=== PATIENT | female | born 1975 | race Two or more races ===

== ENCOUNTER → 2020-02-29 11:39 | Outpatient (BNVA) | payer OTHER, SELFPAY | PROVIDERS: PCP Internal Medicine; Referring Provider Internal Medicine; Visit Provider Obstetrics & Gynecology | DX: N92.1 Excessive and frequent menstruation with irregular cycle (principal); N76.0 Acute vaginitis; B96.89 Other specified bacterial agents as the cause of diseases classified elsewhere | CPT/HCPCS: 99213 ==

== ENCOUNTER → 2020-03-07 11:05 | Outpatient (BNV) | payer OTHER, SELFPAY | PROVIDERS: PCP Internal Medicine; Referring Provider Internal Medicine; Visit Provider Internal Medicine | DX: D72.819 Decreased white blood cell count, unspecified (principal) | CPT/HCPCS: 99204; 99212; 99213 ==

== ENCOUNTER 2020-06-06 06:20 | Outpatient (REF) | payer OTHER, SELFPAY ==
[2020-06-06 07:21] LABS: Glucose Urine UA NEG (NEG); Leukocyte Esterase Urine NEG (NEG); Nitrite Urine NEG (NEG); Specific Gravity - Urine <= 1.005 (1.005-1.025); Urine Blood NEG (NEG); Urine Ketones NEG (NEG); Urine Protein NEG (NEG-TRACE)
[2020-06-06 07:27] LABS: Appearance Urine CLEAR; Color Urine STRAW
== END 2020-06-06 06:21 | disposition home or self-care (01) ==
LOC: HO.LAB 06:20
PROVIDERS: PCP Internal Medicine; Visit Provider Internal Medicine
DX: R30.0 Dysuria (principal)
CPT/HCPCS: 81003

== ENCOUNTER 2020-06-15 16:17 | Outpatient (REF) | payer OTHER, SELFPAY | END 2020-06-15 16:18 | disposition home or self-care (01) | LOC: HO.LAB 16:17 | PROVIDERS: Visit Provider Internal Medicine | DX: Z20.822 Contact with and (suspected) exposure to COVID-19 (principal) | CPT/HCPCS: 36415; C9803; U0003 ==

== ENCOUNTER 2020-06-22 10:53 | Outpatient (REF) | payer OTHER, SELFPAY | END 2020-06-22 10:54 | disposition home or self-care (01) | LOC: HO.LAB 10:53 | PROVIDERS: Visit Provider Internal Medicine | DX: Z20.822 Contact with and (suspected) exposure to COVID-19 (principal) | CPT/HCPCS: 36415; C9803; U0003; U0005 ==

== ENCOUNTER 2020-07-06 08:46 | Outpatient (REF) | payer OTHER, SELFPAY ==
--- NOTE | ~2020-07-06 | XR_ITS ---
EXAMINATION: XR CHEST CLINICAL INFORMATION: Shortness of breath COMPARISON: None TECHNIQUE: 2 views of the chest were obtained. FINDINGS: No significant abnormality is noted involving the heart, lungs, mediastinum, bony thorax or soft tissues. XR/XR chest 2V IMPRESSION: No acute pulmonary disease.
[2020-07-06 10:10] LABS: Glucose Urine UA NEG (NEG); Leukocyte Esterase Urine NEG (NEG); Nitrite Urine NEG (NEG); PH 5.5 (5.0-8.0); Specific Gravity - Urine 1.015 (1.005-1.025); Urine Blood TRACE (NEG); Urine Ketones NEG (NEG); Urine Protein NEG (NEG-TRACE)
[2020-07-06 10:11] LABS: Appearance Urine CLEAR; Color Urine YELLOW
[2020-07-06 11:01] LABS: RBC Urine 0-2 /HPF (0); WBC Urine 0-2 /HPF (0-4)
[2020-07-06 11:02] LABS: Squamous Epithelial Cell Urine 2+ /LPF
== END 2020-07-06 08:47 | disposition home or self-care (01) ==
LOC: HO.LAB 08:46
PROVIDERS: PCP Internal Medicine; Visit Provider Internal Medicine
DX: R06.02 Shortness of breath (principal); R82.90 Unspecified abnormal findings in urine
CPT/HCPCS: 71046; 81001

== ENCOUNTER 2020-07-16 08:05 | Outpatient (REF) | payer OTHER, SELFPAY ==
--- NOTE | 2020-07-16 17:09 | PFT_ITS ---
INDICATION: Shortness of breath. SPIROMETRY: The FEV1 to FVC 82% with an FEV1 of 3.18 L, which is 92% predicted and an FVC of 3.88 L, which is 93% predicted. No significant response to bronchodilators noted. Maximum voluntary ventilation 84% predicted. LUNG VOLUMES: Total lung capacity 113% predicted with residual volume 128% predicted. Expiratory reserve volume of 56% predicted. DIFFUSION CAPACITY: DLCO of 74% predicted. COMPARISONS: None. INTERPRETATION: No obstructive nor restrictive ventilatory defects identified. No significant response to bronchodilators noted. Normal maximum voluntary ventilation. The patient's lung volumes do demonstrate a trend of hyperinflation and significant air trapping, which could be due to underlying small airways disease. The patient also has a mild diffusion impairment. Consider methacholine challenge to assess for hyper-reactive airways and a diagnosis of asthma. Otherwise, clinical correlation warranted. Osei Alex MD MR/MODL / [id number]
== END 2020-07-16 08:06 | disposition home or self-care (01) ==
LOC: HO.RESP 08:05
PROVIDERS: PCP Internal Medicine; Visit Provider Internal Medicine
DX: R06.02 Shortness of breath (principal)
CPT/HCPCS: 94060; 94727; 94729

== ENCOUNTER → 2020-08-14 14:59 | Outpatient (BNVA) | payer OTHER, SELFPAY | PROVIDERS: Visit Provider Hospitalist | DX: K21.00 Gastro-esophageal reflux disease with esophagitis, without bleeding (principal); R06.02 Shortness of breath; J31.0 Chronic rhinitis; J45.40 Moderate persistent asthma, uncomplicated; Z79.899 Other long term (current) drug therapy | CPT/HCPCS: 99202 ==

== ENCOUNTER 2020-08-24 07:55 | Outpatient (REF) | payer OTHER, SELFPAY ==
--- NOTE | ~2020-08-24 | FL_ITS ---
EXAMINATION: FL BARIUM SWALLOW CLINICAL INFORMATION: Gastroesophageal reflux disease. COMPARISON: Chest x-ray June 2020. Upper GI series November 2018. TECHNIQUE: Barium swallow examination is performed using fluoroscopic evaluation in addition to multiple fluoroscopic spot views. The patient is imaged both upright and prone and using both thick and thin barium sulfate along with effervescent granules. Fluoroscopy time: 0.9 minutes DAP: 1.314 Gycm2 Images: 22 FINDINGS: The swallowing mechanisms appeared normal without aspiration or penetration. Esophageal motility is normal. There is no mass stricture or ulceration. There is no diverticulum. EG junction is normal. Contrast passes into the stomach without delay. There is no hiatal hernia. There is no reflux. FL/FL barium swallow IMPRESSION: Normal barium swallow. No evidence for reflux or hiatal hernia
== END 2020-08-24 07:56 | disposition home or self-care (01) ==
LOC: HO.XRAY 07:55
PROVIDERS: PCP Internal Medicine; Visit Provider Hospitalist
DX: K21.9 Gastro-esophageal reflux disease without esophagitis (principal)
CPT/HCPCS: 74220

== ENCOUNTER → 2020-08-31 15:14 | Outpatient (BNVA) | payer OTHER, SELFPAY | PROVIDERS: PCP Internal Medicine; Visit Provider Hospitalist | DX: J45.40 Moderate persistent asthma, uncomplicated (principal); K21.00 Gastro-esophageal reflux disease with esophagitis, without bleeding; J31.0 Chronic rhinitis; Z79.899 Other long term (current) drug therapy | CPT/HCPCS: 99212 ==

== ENCOUNTER 2020-09-12 08:01 | Outpatient (REF) | payer OTHER, SELFPAY ==
--- NOTE | ~2020-09-12 | US_ITS ---
EXAMINATION: US ABDOMEN COMPLETE CLINICAL INFORMATION: Abdominal pain. COMPARISON: None TECHNIQUE: Real-time imaging of the abdominal viscera. FINDINGS: PANCREAS: Normal. ABDOMINAL AORTA: The proximal, mid, and distal segments are normal in caliber. INFERIOR VENA CAVA: Visualized portions are normal. LIVER: Normal. The liver is normal in size. The liver contour is normal. Parenchymal echogenicity is normal. No focal hepatic lesion. There is no intrahepatic biliary duct dilatation seen. GALLBLADDER: Normal. The gallbladder is physiologically distended without evidence of stones, sludge, polyps, wall thickening or pericholecystic fluid. COMMON BILE DUCT: Normal in caliber measuring 0.3 cm in diameter. RIGHT KIDNEY: Normal. No hydronephrosis. No renal calculi or focal parenchymal lesions. The kidney measures 9.9 cm in maximum dimension. LEFT KIDNEY: Normal. No hydronephrosis. No renal calculi or focal parenchymal lesions. The kidney measures 10.1 cm in maximum dimension. SPLEEN: Normal. The spleen measures 9.7 cm in maximum dimension. FREE FLUID: None. US/US abdomen complete IMPRESSION: Normal abdominal ultrasound.
== END 2020-09-12 08:02 | disposition home or self-care (01) ==
LOC: HO.US 08:01
PROVIDERS: PCP Internal Medicine; Visit Provider Internal Medicine
DX: R10.84 Generalized abdominal pain (principal)
CPT/HCPCS: 76700

== ENCOUNTER 2020-09-17 10:36 | Day surgery (SDC) | payer OTHER, SELFPAY ==
[2020-09-12 12:33] VITALS: BMI 16.9
--- NOTE | 2020-09-13 13:50 | HO.ANESPROP2 ---
Documented by User: Rosario Shahid 09/13/20 13:52 HPI - Anesthesia Eval Consult details Narrative: 45yo F for Upper Endoscopy and Colonoscopy Recent conjunctivitis 09/05/20 with tx PMFSH Active Problems Active Problems: All Active Problems (Updated 09/12/20 @ 12:37 by Daria Apple) Metrorrhagia (Acute) Leucopenia (Acute) Impaired fasting blood sugar (Acute) Abdominal pain (Acute) Foul smelling urine (Acute) Chronic rhinitis (Acute) Asthma (Acute) GERD (gastroesophageal reflux disease) (Acute) Vitamin B12 deficiency (Acute) Gastritis (Acute) Shortness of breath (Acute) Past Medical History Medical History Asthma Bacterial vaginosis Chronic leukopenia Chronic rhinitis Gastritis GERD (gastroesophageal reflux disease) Hypovitaminosis D Iron deficiency anemia Shortness of breath Vitamin B12 deficiency Family History Family History Mother Diabetes Maternal Grandmother Diabetes Other Leukemia Surgical History Surgical History Congenital cataract History of esophagogastroduodenoscopy (EGD) History of mandibular surgery Social History Social History Alcohol intake: never Smoking Status: Never smoker Use of substances other than those prescribed or required for medical reasons: No Have you been hit, kicked, punched, or otherwise hurt by someone within the past year? 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 Current occupational exposures/hazards: No Sexual orientation: Straight/Heterosexual Gender identity: female Meds Allergies Allergy/AdvReac Type Severity Reaction Status Date / Time No Known Allergies Allergy Verified 09/12/20 12:30 Home Medications Medication Instructions Recorded Confirmed Last Taken Type beta carotene 25,000 unit PO DAILY 06/12/20 09/12/20 Unknown History bilberry fruit extract [Bilberry 160 mg PO DAILY 06/12/20 09/12/20 Unknown History Extract] vitamin B complex 1 tab PO DAILY 08/14/20 09/12/20 Unknown History acetaminophen [Tylenol] 650 mg PO Q6H PRN 09/12/20 09/12/20 Unknown History multivitamin 1 tab PO QAM 09/12/20 09/12/20 Unknown History Exam Exam Date and Time: September 13, 2020 1350 Height,Weight and Vital Signs: Height 5 ft 9.5 in Weight 52.617 kg Assessment and Plan Assessment Anesthesia Assessment: Chart Reviewed Documented by User: Jose Luis Bundy 09/17/20 12:33 [facility] Past Medical History Medical History Asthma Bacterial vaginosis Chronic leukopenia Chronic rhinitis Gastritis GERD (gastroesophageal reflux disease) Hypovitaminosis D Iron deficiency anemia Shortness of breath Vitamin B12 deficiency Family History Family History Mother Diabetes Maternal Grandmother Diabetes Other Leukemia Surgical History Surgical History Congenital cataract History of esophagogastroduodenoscopy (EGD) History of mandibular surgery Social History Social History Alcohol intake: never Smoking Status: Never smoker Use of substances other than those prescribed or required for medical reasons: No Have you been hit, kicked, punched, or otherwise hurt by someone within the past year? 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 Current occupational exposures/hazards: No Sexual orientation: Straight/Heterosexual Gender identity: female Meds Allergies Allergy/AdvReac Type Severity Reaction Status Date / Time No Known Allergies Allergy Verified 09/12/20 12:30 Home Medications Medication Instructions Recorded Confirmed Last Taken Type beta carotene 25,000 unit PO DAILY 06/12/20 09/12/20 Unknown History bilberry fruit extract [Bilberry 160 mg PO DAILY 06/12/20 09/12/20 Unknown History Extract] vitamin B complex 1 tab PO DAILY 08/14/20 09/12/20 Unknown History acetaminophen [Tylenol] 650 mg PO Q6H PRN 09/12/20 09/12/20 Unknown History multivitamin 1 tab PO QAM 09/12/20 09/12/20 Unknown History Exam Airway Mallampati Class: II TM Dist: >3cm Neck ROM: Full Loose/Missing/Broken Teeth: No Heart: rrr+[id number] Lungs: cta b/l Assessment and Plan Assessment Anesthesia Assessment: Anesthesia Plan Discussed, PAT Visit and Chart Reviewed Final Anesthetic Review NPO: Yes ASA Class: II Final Preanesthetic Review: No Changes in Pt Med Stat, Meds/Allgs Chart Reviewed, Consent Obtained/Reviewed and Anes Risks/Benef Reviewed Patient Risk: Low Procedure Risk: Low Assessment/Block/Sedation in SS: Assess/Block/Sedation-SS Anesthetic Plan Anesthetic Plan: MAC: and Agree w/ Assess. and Plan Disposition: Standard PACU
[2020-09-17 11:30] VITALS: BP 106/69; PULSE 89; RESP 18; TEMP 36.6; O2SAT 99
[2020-09-17 11:55] LABS: UPreg QC Valid YES; Urine Pregnancy NEGATIVE (NEGATIVE)
[2020-09-17] MEDS: Lactated Ringers 1,000 ML 100 ML IVCONT (11:56)
--- NOTE | 2020-09-17 14:44 | PM.OP ---
Brief Operative Note Date of Service: 09/17/20 Pre-op diagnosis: GERD, Rectal pain Post-op diagnosis: other (Minimal hiatal hernia, R/O celiac disease, Internal hemorrhoids, Poor colon prep) Procedure: EGD with biopsies, Colonoscopy to the cecum Surgeon: Chase Villareal Anesthesia: MAC Was an Nanotechnology Engineering Technologist used for this Procedure?: No Estimated blood loss (mL): 3.0 Pathology: other (A. Descending duodenum B. Gastric antrum) Condition: stable Disposition: PACU
[2020-09-17 14:45] VITALS: BP 84/47; PULSE 80; RESP 16; TEMP 36.6; O2SAT 100
[2020-09-17 15:00] VITALS: BP 95/56; PULSE 82; RESP 16; TEMP 36.6; O2SAT 98
--- NOTE | 2020-09-17 20:40 | OP_ITS ---
SURGEON: Chase Villareal MD INDICATIONS: The patient presents for evaluation of gastroesophageal reflux, abdominal discomfort, and some rectal discomfort. Full consent has been obtained from her for both procedures, including risks of bleeding and perforation. PREOPERATIVE DIAGNOSIS: POSTOPERATIVE DIAGNOSIS: PROCEDURE PERFORMED: Esophagogastroduodenoscopy with biopsies, and colonoscopy to cecum. ESTIMATED BLOOD LOSS: COMPLICATIONS: ANESTHESIA: Monitored anesthesia care. ASSISTANTS: SPECIMENS: PREOPERATIVE DIAGNOSES: Gastroesophageal reflux, abdominal discomfort, rectal discomfort. POSTOPERATIVE DIAGNOSES: Gastroesophageal reflux, abdominal discomfort, rectal discomfort, small hiatal hernia, rule out celiac disease, internal hemorrhoids, relatively poor colon prep. DESCRIPTION OF PROCEDURE: The patient was placed in the left lateral decubitus position. The Olympus video gastroscope was passed in the posterior oropharynx and upper esophagus under direct vision. The scope was passed slowly into the distal esophagus. The gastroesophageal junction appeared normal at 36 cm. There was no sign of any esophagitis nor Barboza's mucosa. The scope entered into the stomach. There was a relatively minimal hiatal hernia. The scope was advanced to the pylorus and the duodenum was cannulated to the descending portion. The duodenum including the bulb was carefully inspected and appeared normal. The biopsies were obtained from the second and third portions of the duodenum. The scope was withdrawn back into the stomach. The gastric antrum and body appeared normal with good peristalsis. The biopsies were obtained from the gastric antrum. The scope was retroflexed visualizing the proximal stomach carefully, which appeared normal, without any sign of mass or ulceration. The scope was straightened and withdrawn back into the esophagus. The esophageal mucosa appeared normal. The scope was withdrawn from the patient. She was turned around for colonoscopy. The digital rectal exam revealed no abnormalities. The Olympus video pediatric colonoscope was entered into the rectum and advanced easily to the cecum. Once in the cecum, I did identify ileocecal valve and transillumination of light deep in the right lower quadrant. However, visualization of the cecum was very limited due to a poor prep with lot of thick solid stool. I did not visualize any masses. The scope was then slowly withdrawn assessing all mucosal surfaces carefully. Preparation throughout the colon was limited due to the poor prep. I did not visualize any obvious masses or polyps. There was no obvious colitis. In the rectum, scope was retroflexed visualizing internal hemorrhoids, but no other pathology. Portions of the rectal mucosa were obscured by stool as well. The scope was straightened out and withdrawn from the patient. She tolerated both procedures well and was returned to the recovery area in stable condition. IMPRESSION: 1. Minimal hiatal hernia. 2. Rule out celiac disease. 3. Internal hemorrhoids. 4. Poor colon prep. PLAN: The results of biopsy will be checked. I shall start her on omeprazole 20 mg daily in regard to the ongoing reflux. She will be seen in the office in next 2 or 3 months for a followup visit. She did have a recent abdominal ultrasound that was nonrevealing as well. MD HERIBERTO Willis/SHANNAN / [id number]
== END 2020-09-17 15:30 | disposition home or self-care (01) ==
PROVIDERS: Nurse Practitioner; PCP Internal Medicine; Visit Provider Internal Medicine
PROC: (CPT 45378; principal; 2020-09-17 12:30)
DX: K62.89 Other specified diseases of anus and rectum (principal); K64.8 Other hemorrhoids; R10.84 Generalized abdominal pain; K21.9 Gastro-esophageal reflux disease without esophagitis; K44.9 Diaphragmatic hernia without obstruction or gangrene; J45.909 Unspecified asthma, uncomplicated; D72.819 Decreased white blood cell count, unspecified; Z79.899 Other long term (current) drug therapy
CPT/HCPCS: 45378; 43239; 81025; 88305; 88342

== ENCOUNTER → 2020-11-27 13:03 | Outpatient (BNVA) | payer OTHER, SELFPAY | PROVIDERS: PCP Internal Medicine; Referring Provider Internal Medicine; Visit Provider Obstetrics & Gynecology ==

== ENCOUNTER 2021-02-06 08:32 | Outpatient (REF) | payer OTHER, SELFPAY ==
[2021-02-06 09:06] LABS: COVID-19 Test Negative (Negative)
== END 2021-02-06 08:33 | disposition home or self-care (01) ==
LOC: HO.LAB 08:32
PROVIDERS: PCP Internal Medicine; Visit Provider Internal Medicine
DX: Z20.822 Contact with and (suspected) exposure to COVID-19 (principal)
CPT/HCPCS: 36415; 87635; C9803

== ENCOUNTER → 2021-04-05 15:40 | Outpatient (BNVA) | payer OTHER, SELFPAY | PROVIDERS: PCP Internal Medicine; Visit Provider Hospitalist | DX: J31.0 Chronic rhinitis (principal); J45.40 Moderate persistent asthma, uncomplicated; K21.00 Gastro-esophageal reflux disease with esophagitis, without bleeding | CPT/HCPCS: 99212 ==

== ENCOUNTER → 2021-05-24 11:09 | Outpatient (BNVA) | payer OTHER, SELFPAY | PROVIDERS: PCP Internal Medicine; Visit Provider Nurse Practitioner Family | DX: M53.3 Sacrococcygeal disorders, not elsewhere classified (principal) | CPT/HCPCS: 99202 ==

== ENCOUNTER 2021-06-28 07:56 | Outpatient (REF) | payer OTHER, SELFPAY ==
[2021-06-28 08:38] LABS: Appearance Urine CLEAR; Color Urine YELLOW; Glucose Urine UA NEG (NEG); Leukocyte Esterase Urine NEG (NEG); Nitrite Urine NEG (NEG); PH 6.5 (5.0-8.0); Specific Gravity - Urine <= 1.005 (1.005-1.025); Urine Blood 2+ (NEG); Urine Ketones NEG (NEG); Urine Protein NEG (NEG-TRACE)
[2021-06-28 08:56] LABS: Squamous Epithelial Cell Urine 1+ /LPF; WBC Urine 0-2 /HPF (0-4)
[2021-06-28 09:11] LABS: Blood Urea Nitrogen 10 mg/dL (9-16); Estimated Glomerular Filt Rate > 60
== END 2021-06-28 07:57 | disposition home or self-care (01) ==
LOC: HO.LAB 07:56
PROVIDERS: PCP Internal Medicine; Visit Provider Internal Medicine
DX: R10.2 Pelvic and perineal pain (principal); R82.90 Unspecified abnormal findings in urine
CPT/HCPCS: 36415; 81001; 82565; 84520

== ENCOUNTER 2021-07-10 08:00 | Outpatient (RCR) | payer OTHER, SELFPAY ==
--- NOTE | 2021-06-21 14:03 | MHC.PT.EP ---
[facility] [place] Office [place] [facility] [place] Office [address] Roselyn Jimenez [address] [facility] [phone] F: [phone] F: [phone] F: [phone] F: [phone] Physical Therapy Plan of Care Date of Evaluation: 06/21/21 Date of Surgery: Diagnosis: sacrococcygeal pain not specified Assessment: The patient arrived reporting several symptoms of pelvic floor dysfunction such as pelvic pain, increased urgency, constipation. I urged her to see an OBGYN for a well visit since she is having new onset symptoms of an irregular menstrual cycle. The patient was educated about her pelvic floor and her current pain complaints and consented to a pelvic assessment of her pelvic floor muscles. The patient had a Grad2 2 cystourethrocele noted and a grade 2 rectocele. Poor tone noted in her pelvic floor, and poor neuromotor awareness. Even with several cues the patient was unable to make a contraction of her pelvic floor. The patient reported long standing coccyx pain. She consented to a rectal assessment of her pelvic floor. This showed tightness in the illiococcygeus on the left side. Pressure on this muscle reproduced her pain. The patient's cervix was found low in her vaginal canal at 1.5 knuckles deep. The patient was educated regarding breathing mechanics, posture, and pelvic floor activation. She will need more practice with all of these concepts. I used a video griddle attendant on the computer for the evaluation. Frequency and Duration: The patient will be seen 1x/week x 6 weeks. Short Term Goals: 1. Pt will demonstrate proper sitting posture to help reduce strain on lumbar. 2. Pt will demonstrate improved NMR activation of her pelvic floor. 3. Pt will demonstrate improved bathroom habits to help ease constipation. Longterm Goals: 1. Pt will no longer have back pain with sitting, sleeping, and rest 2. pt will be able to have full relief of coccyx pain. 3. Pt will be able to manage symptoms of pelvic floor dyfunction indpendently. Treatment Plan: Modalities to reduce pain, spasms and effusion. Manual therapy to restore motion and function. Therapeutic exercise to improve strength and flexibility. Neuromuscular re-education for posture and balance. Therapeutic activities to return to functional activities of daily living. Electronically signed by: Please sign and return to therapist. Thank you for your referral.
== END 2021-07-12 08:00 | disposition home or self-care (01) ==
LOC: HO.PT 08:00
PROVIDERS: PCP Internal Medicine; Visit Provider Nurse Practitioner Family
DX: M53.3 Sacrococcygeal disorders, not elsewhere classified (principal)
CPT/HCPCS: 97110; 97112; 97140; 97162; 97530

== ENCOUNTER 2021-07-18 14:58 | Outpatient (REF) | payer OTHER, SELFPAY | END 2021-07-18 14:59 | disposition home or self-care (01) | LOC: HO.MRI 14:58 | PROVIDERS: Visit Provider Internal Medicine | DX: Z13.89 Encounter for screening for other disorder (principal) ==

== ENCOUNTER 2021-11-06 12:01 | Outpatient (REF) | payer OTHER, SELFPAY ==
[2021-11-08 01:06] LABS: Rubeola IgG (Measles) <13.50 AU/mL; Varicella IgG Antibody <135.00 index
== END 2021-11-06 12:02 | disposition home or self-care (01) ==
LOC: HO.LAB 12:01
PROVIDERS: PCP Internal Medicine; Visit Provider Nurse Practitioner Family
DX: Z01.84 Encounter for antibody response examination (principal)
CPT/HCPCS: 36415; 86735; 86762; 86765; 86787

== ENCOUNTER 2022-01-31 11:12 | Outpatient (REF) | payer OTHER, SELFPAY ==
[2022-01-31 11:44] LABS: COVID-19 Test Negative (Negative)
== END 2022-01-31 11:13 | disposition home or self-care (01) ==
LOC: HO.LAB 11:12
PROVIDERS: Hospitalist; Visit Provider Internal Medicine
DX: Z20.822 Contact with and (suspected) exposure to COVID-19 (principal); J06.9 Acute upper respiratory infection, unspecified; J45.40 Moderate persistent asthma, uncomplicated; J31.0 Chronic rhinitis; K21.00 Gastro-esophageal reflux disease with esophagitis, without bleeding
CPT/HCPCS: 87635; 99212; C9803

== ENCOUNTER 2022-03-26 09:54 | Outpatient (REF) | payer OTHER, SELFPAY ==
[2022-03-26 10:59] LABS: Basophils Percent Auto 1.7 % (0-2); Eosinophils Absolute Auto 0.1 X10*3/uL (0.0-0.4); Eosinophils Percent Auto 2.9 % (0-4); Hematocrit 36.7 % (37.0-47.0); Hemoglobin 11.9 g/dl (12.0-16.0); Imm Gran Abs Auto 0.01 X10*3/uL (0.00-0.03); Imm Gran Pct Auto 0.4 % (0.0-0.4); Lymphocytes Absolute Auto 0.8 X10*3/uL (1.2-4.9); Lymphocytes Percent Auto 33.2 % (20-40); MANUAL DIFF FLAG SCAN; Mean Corpuscular HGB Conc 32.4 g/dl (31.0-35.0); Mean Corpuscular Hemoglobin 30.1 pg (27.0-33.0); Mean Corpuscular Volume 92.7 fL (80.0-98.0); Mean Platelet Volume 10.4 fL (9.4-12.3); Monocytes Absolute Auto 0.2 X10*3/uL (0.1-1.2); Monocytes Percent Auto 8.3 % (2-11); Neutrophils Absolute Auto 1.3 x10*3/uL (2.0-8.3); Neutrophils Percent Auto 53.5 % (45-73); Platelet Count 241 X10*3/uL (160-400); Red Blood Count 3.96 X10*6/uL (4.20-5.50); SCAN SMEAR FLAG 1
[2022-03-26 11:01] LABS: White Blood Count 2.4 X10*3/uL (4.8-10.8)
[2022-03-26 11:25] LABS: Alanine Aminotransferase 13 U/L (0-31); Albumin Level 4.2 g/dL (3.5-5.0); Alkaline Phosphatase 36 U/L (39-117); Anion Gap 14 (12-20); Aspartate Amino Transferase 20 U/L (5-31); Bilirubin Total 0.5 mg/dL (0.0-1.0); Blood Urea Nitrogen 6 mg/dL (9-16); Calcium 8.8 mg/dL (8.4-10.2); Carbon Dioxide 23 mmol/L (22-29); Chloride 101 mmol/L (96-108); Cholesterol 173 mg/dL; Estimated Glomerular Filt Rate > 60; Glucose Random 86 mg/dL (60-115); HDL Cholesterol 68 mg/dL; LDL Cholesterol Calculated 90 mg/dl; Potassium 4.1 mmol/L (3.3-5.1); Sodium 134 mmol/L (135-145); Total Protein 7.4 g/dL (6.5-8.0); Triglycerides 78 mg/dL
[2022-03-26 11:30] LABS: SLIDE REVIEW VERIFIED
[2022-03-26 11:40] LABS: Appearance Urine Clear; Color Urine Yellow; Glucose Urine UA Negative (Negative); Leukocyte Esterase Urine Negative (Negative); Nitrite Urine Negative (Negative); PH 7.5 (5.0-9.0); Specific Gravity - Urine <= 1.005 (1.005-1.025); Urine Blood Negative (Negative); Urine Ketones Negative (Negative); Urine Protein Negative (Neg-Trace)
[2022-03-26 11:47] LABS: Bacteria Urine None Seen (None Seen); Hyaline Casts Urine 0-2 /LPF (0-2); RBC Urine 0-2 /HPF (0-2); Squamous Epithelial Cell Urine 0-2 /HPF (0-2); WBC Urine 0-5 /HPF (0-5)
[2022-03-26 11:51] LABS: Free T4 (Free Thyroxine) 0.87 ng/dL (0.71-1.85); Thyroid Stimulating Hormone 1.35 uIU/mL (0.32-4.0); Vitamin D 25-OH Total 18.2 ng/mL (>30)
[2022-03-26 12:16] LABS: Vitamin B12 190 pg/mL (200-900)
== END 2022-03-26 09:55 | disposition home or self-care (01) ==
LOC: HO.LAB 09:54
PROVIDERS: PCP Internal Medicine; Visit Provider Internal Medicine
DX: R63.5 Abnormal weight gain (principal); E78.00 Pure hypercholesterolemia, unspecified
CPT/HCPCS: 36415; 80053; 80061; 81001; 82306; 82607; 82746; 84439; 84443; 85025

== ENCOUNTER 2022-07-18 10:07 | Outpatient (REF) | payer OTHER, SELFPAY ==
--- NOTE | 2022-07-18 10:00 | PFT_ITS ---
Forced vital capacity 97%, FEV1 90%, FEV1/FVC ratio is 76. [id number] 72% and MVV 76%. Post bronchodilator therapy, there is no significant change. Total lung capacity 100%. Residual volume 92%. Diffusion capacity 68% CONCLUSION: Normal pulmonary function test. No evidence of obstructive or restrictive pulmonary disorder. No response to bronchodilator therapy. MD ANNIE Mohr/MODL / [id number]
== END 2022-07-18 10:08 | disposition home or self-care (01) ==
LOC: HO.RESP 10:07
PROVIDERS: PCP Internal Medicine; Visit Provider Hospitalist
DX: J45.909 Unspecified asthma, uncomplicated (principal)
CPT/HCPCS: 94060; 94727; 94729

== ENCOUNTER → 2022-08-26 10:12 | Outpatient (BNVA) | payer OTHER, SELFPAY | PROVIDERS: PCP Internal Medicine; Visit Provider Hospitalist | DX: J45.40 Moderate persistent asthma, uncomplicated (principal); J31.0 Chronic rhinitis; R40.0 Somnolence; R06.83 Snoring; K21.00 Gastro-esophageal reflux disease with esophagitis, without bleeding | CPT/HCPCS: 99212 ==

== ENCOUNTER 2022-10-07 06:30 | Outpatient (REF) | payer OTHER, SELFPAY ==
[2022-10-07 06:43] LABS: MANUAL DIFF FLAG NO
[2022-10-07 07:34] LABS: Basophils Percent Auto 0.9 % (0-2); Eosinophils Absolute Auto 0.1 X10*3/uL (0.0-0.4); Eosinophils Percent Auto 2.3 % (0-4); Hematocrit 37.7 % (37.0-47.0); Immature Retic Fraction 9.7 % (3.0-15.9); Lymphocytes Absolute Auto 1.2 X10*3/uL (1.2-4.9); Mean Corpuscular HGB Conc 31.8 g/dl (31.0-35.0); Mean Corpuscular Volume 91.1 fL (80.0-98.0); Mean Platelet Volume 10.9 fL (9.4-12.3); Monocytes Absolute Auto 0.4 X10*3/uL (0.1-1.2); Monocytes Percent Auto 10.8 % (2-11); Neutrophils Absolute Auto 1.8 x10*3/uL (2.0-8.3); Platelet Count 218 X10*3/uL (160-400); Red Blood Count 4.14 X10*6/uL (4.20-5.50); Red Cell Distribution Width 14.4 % (11.0-16.0); Retic HGB Equivalent 34.9 pg (30.0-35.0); Reticulocyte Percent 0.6 % (0.5-1.8); Reticulocytes Absolute 0.024 X10*6/uL (0.026-0.095); White Blood Count 3.4 X10*3/uL (4.8-10.8)
[2022-10-07 08:13] LABS: Alanine Aminotransferase 11 U/L (0-31); Albumin Level 4.2 g/dL (3.5-5.0); Alkaline Phosphatase 41 U/L (39-117); Anion Gap 10 (12-20); Aspartate Amino Transferase 16 U/L (5-31); Bilirubin Total 0.7 mg/dL (0.0-1.0); Blood Urea Nitrogen 7 mg/dL (9-16); Calcium 9.2 mg/dL (8.4-10.2); Carbon Dioxide 27 mmol/L (22-29); Chloride 103 mmol/L (96-108); Cholesterol 174 mg/dL; Estimated Glomerular Filt Rate > 60; Glucose Random 83 mg/dL (60-115); HDL Cholesterol 64 mg/dL; Iron 97 mcg/dL (30-160); LDL Cholesterol Calculated 100 mg/dl; Percent Iron Saturation 27 % (15-50); Potassium 4.1 mmol/L (3.3-5.1); Sodium 136 mmol/L (135-145); Total Iron Binding Capacity 363 mcg/dL (228-428); Triglycerides 53 mg/dL; Unsaturated Iron Binding 266 ug/dL
[2022-10-07 08:31] LABS: Ferritin 7 ng/mL (10-250); Free T4 (Free Thyroxine) 0.84 ng/dL (0.71-1.85); Vitamin B12 318 pg/mL (200-900); Vitamin D 25-OH Total 19.8 ng/mL (>30)
[2022-10-07 09:43] LABS: Appearance Urine Clear; Color Urine Yellow; Glucose Urine UA Negative (Negative); Leukocyte Esterase Urine Large (3+) (Negative); Nitrite Urine Negative (Negative); PH 6.5 (5.0-9.0); Specific Gravity - Urine 1.015 (1.005-1.025); UMIC TRIGGER UA YES; Urine Blood Trace (Negative); Urine Ketones Negative (Negative); Urine Protein Negative (Neg-Trace)
[2022-10-07 09:50] LABS: Bacteria Urine 1+ (None Seen); Hyaline Casts Urine 0-2 /LPF (0-2)
== END 2022-10-07 06:31 | disposition home or self-care (01) ==
LOC: HO.LAB 06:30
PROVIDERS: PCP Internal Medicine; Visit Provider Internal Medicine
DX: R73.01 Impaired fasting glucose (principal); E78.00 Pure hypercholesterolemia, unspecified
CPT/HCPCS: 36415; 80053; 80061; 81001; 82306; 82607; 82728; 82746; 83540; 84439; 84443; 85025; 85045

== ENCOUNTER 2022-12-25 15:26 | Outpatient (AMB) | payer OTHER, SELFPAY ==
[2022-12-25 15:34] VITALS: BP 100/60; PULSE 78; O2SAT 100; BMI 17.6
--- NOTE | 2022-12-25 15:34 | A.OFFVIS_ITS ---
Intake Vital Signs 12/25/22 15:34 Height 5 ft 9 in Weight 119 lb 0.794 oz BMI 17.6 BP 100/60 Blood Pressure Location Lt brachial Position Sitting Pulse 78 Pulse Source Pulse Oximeter Pulse Oximetry (%) 100 Oxygen Delivery Method Room Air Intake Visit Reasons: asthma Pulp Piler Required: No Allergies No Known Allergies Allergy (Verified 12/25/22 15:38) HPI HPI Comments History of Present Illness Details The patient is a 47-year-old woman with known history of asthma in addition to chronic rhinitis and allergies. The patient states that she has had significant respiratory symptoms while living in [place]. Subsequently at that point she was evaluated by specialist and placed on Advair. She was on a briefly but then she has to stop because she had no insurance coverage. Subsequent after that she moved to the [facility]. Here she has had significant allergies as well. They have been very significant. In addition to that she does have reflux disease. She does follow very strict vegetarian/keto diet. She did undergo a chest x-ray that we personally reviewed demonstrating hyperinflation of the lungs. Her gastric but was more medial suggesting the possibility of reflux disease. In addition to that she underwent pulmonary function studies without any obstructive nor restrictive ventilatory defects. Although, she did have evidence of air trapping in a trend of hyperinflation. She does not like to take medications but she is willing to at least try it and see how she response to. Patient needs to be placed on home maintenance inhaler for what appears to be asthma symptoms. 08/31/2020 the patient is here for pulmonary follow-up visit. Overall she is doing a little better. She continues use her rescue inhaler on a daily basis her. We did talk about starting inhaled cortical steroid along with the long- acting beta agonist but the patient was concerned about a additional medication is into her body. She did have a barium swallow demonstrating no evidence of any reflux although she still has reflux like symptoms. She is trying to follow some degree of the reflux diet. She already has significant dietary limitations with her other lifestyle choices when he comes to eating. Again, we talked about the benefits of a long-acting respiratory medications. Indeed she can take the lowest most effective dose for her which may be only partial of the full dose. She can also use intermittently based on her symptoms. We also did review her blood work demonstrating slightly elevated IgE level in addition to that she does have leukopenia that she is aware of. She does also now that there is a family history of leukemia and makes her concerned. 04/05/2021 the patient is here for a pulmonary follow-up visit. Overall she is feeling better from a respiratory status. Has not had to use a rescue inhaler. She also has not had to use her Symbicort. She is looking not to take too many medicines. She did follow-up with GI. She did undergo endoscopy d emonstrating chronic gastritis. She was placed on medication. She is also trying to maintain a healthy lifestyle. therefore, she is continuing the reflux diet and try to sleep elevated. We talked about different potential triggers for asthma which in her case on reflux and postnasal drip. As long she can control does to triggers her breathing should continue to be okay. If she does developing significant bronchospasm some coughing she can always use her rescue inhaler as needed. 01/31/2022 the patient is here for a pulmonary follow-up visit. Overall she is doing much better. She has not had to use her inhalers. The patient continues to monitor closely her reflux symptoms. She follows her reflux diet very closely. The patient states that her cough is significantly better Overall. Although, the last few days she started having URI like symptoms. She started developing had a cough as well. Denies any wheezing or chest tightness. Denies any significant chest congestion. I did recommend she get COVID tested again she can do that after this visit. No recent pulmonary function studies or imaging studies to review. Plan to follow-up in a year's time although mostly more an as-needed basis as she is doing better. 12/25/2022 the patient is here for a pulmonary follow-up visit. She has multiple complaints. Having significant amount of stress at her work and life. She does complaint of increasing shortness of breath. She has not been using Symbicort. She did find an old ProAir RespiClick and she found that this is been helpful. She has to use it several times a day. For that reason I explained to her that the long-acting Symbicort will probably be more effective for her. She did undergo pulmonary function studies and she does have some degree of small airways disease which is suspicious for asthma. In addition to this the patient does complaint of postnasal drip and reflux issues. She denies any history of allergies. She takes is more related to reflux disease. She is trying to follow closely reflux diet. She is going to make dietary changes and also be careful with coffee. The patient also describes significant daytime drowsiness. She does snore. Her Ada score is elevated 13/24. She has a hard time staying awake even in public places. She denies any signs and symptoms that would suggest narcolepsy although hypersomnia is in the differential. The patient will need a home sleep study at this time. Will follow-up after the sleep study. [facility] Medical History Asthma Bacterial vaginosis Chronic leukopenia Chronic rhinitis Gastritis GERD (gastroesophageal reflux disease) Has daytime drowsiness Hypovitaminosis D Iron deficiency anemia Snoring Vitamin B12 deficiency Surgical History Congenital cataract History of esophagogastroduodenoscopy (EGD) History of mandibular surgery Family History Mother Diabetes Maternal Grandmother Diabetes Other Leukemia Substance abuse Social History Housing: House Alcohol intake: never Patient Tobacco Use Status: Never used Tobacco e-Cigarette/Vaping Use: Never Used Second Hand Smoke Exposure: No service: No Current occupational status: employed 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 Current occupational exposures/hazards: No Sexual orientation: Straight/Heterosexual Gender identity: Female Cognitive needs: No Hearing needs: No Vision needs: Yes Female Reproductive History Menstrual Age of Menarche: 11 Review of Systems Const Reports daytime sleepiness, Reports difficulty sleeping, Reports fatigue, Denies night sweats and Reports snoring ENT Denies change in voice, Denies lip swelling, Denies mouth pain, Reports nasal congestion, Reports nasal discharge, Reports post nasal drip and Denies tongue swelling Card Denies chest pain and Reports dyspnea on exertion Resp Reports cough, Reports dyspnea on exertion and Reports snoring GI Reports dyspepsia and Reports heartburn Musc Denies no additional complaints Neuro Denies Neuro-related abnormal movements Psych Denies no additional complaints Endo Reports fatigue Kvng/Lymph Denies easy bleeding and Denies lymphadenopathy Aller/Immun Denies lip swelling and Denies tongue swelling Physical Exam Vital Signs: Last Vital Signs Pulse 78 12/25/22 15:34 BP 100/60 12/25/22 15:34 Pulse Ox 100 12/25/22 15:34 Oxygen Delivery Method Room Air 12/25/22 15:34 BMI result Body Mass Index 17.6 Const General: alert Neck Neck: Yes normal visual inspection, Yes full ROM and Yes no lymphadenopathy Chest Chest palpation & inspection: normal inspection of the chest Resp Auscultation: diminished lung sounds Cardio Rate: regular rate Rhythm: regular rhythm Heart sounds: S1 normal heart sound present and S2 normal heart sound present GI Palpation (GI): Soft to palpation and nontender Auscultation: normal bowel sounds Skin General skin exam: rashes and/or lesions noted Assessment & Plan Assessment & Plan (1) Chronic rhinitis: Code(s): J31.0 - Chronic rhinitis (2) Asthma: Code(s): J45.909 - Unspecified asthma, uncomplicated Qualifiers: Asthma complication type: uncomplicated Asthma persistence: persistent Asthma severity: moderate Qualified Code(s): J45.40 - Moderate persistent asthma, uncomplicated (3) GERD (gastroesophageal reflux disease): Code(s): K21.9 - Gastro-esophageal reflux disease without esophagitis Qualifiers: Esophagitis bleeding: without hemorrhage Esophagitis presence: with esophagitis Qualified Code(s): K21.00 - Gastro-esophageal reflux disease with esophagitis, without bleeding (4) Has daytime drowsiness: Code(s): R40.0 - Somnolence (5) Snoring: Code(s): R06.83 - Snoring Plan continue Symbicort BID KASANDRA as needed Continue reflux diet Nasal rinsing home PSG Follow-up 3-6 months Orders: Orders RT home sleep study Today R06.83 - Snoring, R40.0 - Somnolence Coding Level of Care Code Est Pt Level 4 (33359) Diagnoses Chronic rhinitis J31.0 Asthma J45.40 Asthma complication type: uncomplicated Asthma persistence: persistent Asthma severity: moderate GERD (gastroesophageal reflux disease) K21.00 Esophagitis bleeding: without hemorrhage Esophagitis presence: with esophagitis Has daytime drowsiness R40.0 Snoring R06.83 Time Spent (min) 19
== END 2022-12-25 16:01 | disposition home or self-care (01) ==
PROVIDERS: PCP Internal Medicine; Visit Provider Hospitalist
DX: J31.0 Chronic rhinitis (principal); J45.40 Moderate persistent asthma, uncomplicated; K21.00 Gastro-esophageal reflux disease with esophagitis, without bleeding; R40.0 Somnolence; R06.83 Snoring
CPT/HCPCS: 99214

== ENCOUNTER → 2022-12-25 15:26 | Outpatient (BNVA) | payer OTHER, SELFPAY | PROVIDERS: PCP Internal Medicine; Visit Provider Hospitalist | DX: J31.0 Chronic rhinitis (principal); J45.40 Moderate persistent asthma, uncomplicated; K21.00 Gastro-esophageal reflux disease with esophagitis, without bleeding; R40.0 Somnolence; R06.83 Snoring; Z79.899 Other long term (current) drug therapy | CPT/HCPCS: 99212 ==

== ENCOUNTER 2022-12-31 13:35 | Outpatient (AMB) | payer OTHER, SELFPAY ==
--- NOTE | 2022-12-31 13:36 | A.OFFPC_ITS ---
Vital Signs 12/31/22 13:37 Height 5 ft 9 in Weight 118 lb 8 oz BMI 17.5 BP 108/62 Blood Pressure Location Lt brachial Position Sitting Pulse 80 Pulse Source Palpation Intake Visit Reasons: Lower back pain, chills, sleepless Allergies No Known Allergies Allergy (Verified 01/01/23 07:15) Medication List - Last Reconciled 01/01/23 by Meet Sterling PA-C No Known Home Meds Tobacco use date assessed: 10/03/22 Dental Screening Dental Screen Date: 12/31/22 Did you have a dental visit in the last 12 months?: Yes Did you have a dental problem in the last 6 months where you did not have access to dental care?: No Was dental information given to patient?: Patient has dentist HPI Lower back pain, chills, sleepless HPI Details Patient is a 47-year-old female here today for a problem visit. This is the 1st time I am meeting this 47-year-old female with a past medical history significant for asthma, GERD, she does follow-up vegitarian diet. Recently seen her physics faculty member reported daytime somnolence, noted to have an elevated [place] Sleepiness Scale score to which she has been sent for sleep study. REport having a lower back pain and issues sleeping over the last 4-5 days. She also reports having lower extremity discomfort. Physical exam today without any concerning findings of swelling, erythema ect.. COUNT INCLUDES THE [facility] Medical History Asthma Bacterial vaginosis Chronic leukopenia Chronic rhinitis Gastritis GERD (gastroesophageal reflux disease) Has daytime drowsiness Hypovitaminosis D Iron deficiency anemia Snoring Vitamin B12 deficiency Surgical History Congenital cataract History of esophagogastroduodenoscopy (EGD) History of mandibular surgery Family History Mother Diabetes Maternal Grandmother Diabetes Other Leukemia Substance abuse Social History Housing: House Alcohol intake: never Patient Tobacco Use Status: Never used Tobacco e-Cigarette/Vaping Use: Never Used Second Hand Smoke Exposure: No service: No Current occupational status: employed 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 1. Little interest or pleasure in doing things: not at all 2. Feeling down, depressed, or hopeless: not at all 3. Trouble falling or staying asleep, or sleeping too much: not at all 4. Feeling tired or having little energy: not at all 5. Poor appetite or overeating: not at all 6. Feeling bad about yourself - or that you are a failure or have let yourself or your family down: not at all 7. Trouble concentrating on things, such as reading the newspaper or watching television: not at all 8. Moving or speaking so slowly that other people could have noticed. Or the opposite - being so fidgety or restless that you have been moving around a lot more than usual: not at all 9. Thoughts that you would be better off or of hurting yourself in some way: not at all Total score: 0 Depression Screening Interpretation: Negative Source: Developed by Drs. Chase Maxwell, Yakelin Nam, Pierre Pearce and colleagues, with an educational joce from [employer] Thrive Questionnaire Date Thrive assessed: 10/03/22 I am a: Patient What is your living situation today?: I have a steady place to live Within the past 12 months, did the food you bought not last and you didn't have the money to get more?: Never true Within the past 12 months, did you worry whether your food would run out before you got money to buy more?: Never true Do you have trouble paying for medicines?: No Do you have trouble getting transportation to medical appointments?: No Do you have trouble paying your heating and electricity bill?: No Do you have trouble taking care of your child, family member or friend?: No Do you have trouble with day-to-day activities such as bathing, preparing meals, shopping, managing finances, etc.?: No Are you currently unemployed and looking for a job?: No Are you interested in more education?: No Currently or been in a relationship where the following occur: no concerns reported AUDIT C Alcohol Use Questionnaire (AUDIT-C) 1. How often do you have a drink containing alcohol?: Never 3. How often do you have six or more drinks on one occasion?: Never Total Score: 0 CLARIBEL-7 AMB Questionnaire CLARIBEL-7 Date CLARIBEL - 7 assessed: 10/03/22 Feeling nervous, anxious, or on edge: 0 = Not at all Not being able to stop or control worryin = Not at all Worrying too much about different things: 0 = Not at all Trouble relaxin = Not at all Being so restless that it is hard to sit still: 0 = Not at all Becoming easily annoyed or irritable: 0 = Not at all Feeling afraid as if something awful might happen: 0 = Not at all Total CLARIBEL-7 score (0-4 normal; 5-9 mild; 10-14 moderate; 15-21 severe): 0 Source: Developed by Drs. Chase Maxwell, Yakelin Nam, Pierre Pearce and colleagues, with an educational joce from [employer] Review of Systems Const Reports chills, Reports fatigue and Denies headache(s) Eyes Denies loss of vision ENT Denies vertigo, Denies dizziness, Denies headache(s) and Denies sore throat Card Denies chest pain, Denies leg edema and Denies lightheadedness Resp Denies cough, Denies hemoptysis and Denies wheezing GI Denies abdominal pain, Denies melena, Denies constipation, Denies diarrhea and Denies vomiting Denies urinary frequency, Denies dysuria and Denies urinary urgency Musc Reports back pain, Reports arthralgias, Denies joint swelling, Denies numbness and Denies tingling Neuro Denies Abnormal speech present, Denies behavioral changes, Denies vertigo, Denies dizziness, Denies headache(s), Denies loss of vision, Denies memory loss, Denies numbness and Denies tingling Psych Denies anxiety, Denies behavioral changes, Denies depression, Denies memory loss and Denies panic attacks Endo Reports fatigue Kvng/Lymph Denies easy bleeding and Denies easy bruising Aller/Immun Denies wheezing Physical exam (Primary Care) Vital Signs: Last Vital Signs Pulse 80 12/31/22 13:37 BP 108/62 12/31/22 13:37 BMI result Body Mass Index 17.5 Tobacco/Smoking Status: Tobacco use Status Tobacco use date assessed 10/03/22 12/31/22 13:44 Patient Tobacco Use Status Never used Tobacco 12/31/22 13:44 e-Cigarette/Vaping Use Never Used 12/31/22 13:44 PHQ-9: PHQ-9 Score PHQ-9: Total score 0 12/31/22 13:50 Depression Screening Interpretation: Negative Thrive Assessment: Date of Thrive Assessment Date Thrive assessed 10/03/22 12/31/22 13:44 Currently or been in a relationship where the following occur: no concerns reported Const General: healthy appearing, no acute distress, alert and awake Nutritional Appearance: well nourished Orientation/consciousness: oriented to person, oriented to place and oriented to time HENMT Ears: TM's normal bilaterally General nose exam: Normal nasal mucous membranes and turbinates present Eyes Conjunctivae: conjunctivae normal Sclerae: sclerae normal Pupils: Equal, round and reactive pupils present Neck Neck: Yes no lymphadenopathy and Yes no JVD Thyroid: Thyroid normal Carotids: no bruits Resp Effort & Inspection: normal respiratory effort and not tachypneic Auscultation: no crackles, no rales, no rhonchi and no wheezes Cardio Rate: regular rate Rhythm: regular rhythm Heart sounds: no murmurs and normal S1 and S2 GI Palpation (GI): Soft to palpation, nontender, no hepatomegaly and no splenomegaly Auscultation: normal bowel sounds Skin General skin exam: no rashes or lesions noted and dry skin Neuro General: oriented to person, oriented to place and oriented to time Cranial nerves: Yes Equal, round and reactive pupils present Speech: No Abnormal speech present Gait exam (Neuro): Normal gait present Motor exam (neuro): no tremor noted Extrem Right upper extremity: full ROM Left upper extremity: full ROM Right lower extremity: full ROM; no edema Left lower extremity: full ROM; no edema Psych Mental Status: mental status grossly normal Speech and movement: Normal speech and movement present Affect: normal affect Attitude: cooperative Thought process: Normal thought process present Assessment and Plan Assessment & Plan (1) Fatigue: Code(s): R53.83 - Other fatigue Qualifiers: Fatigue type: unspecified Qualified Code(s): R53.83 - Other fatigue Plan: Unclear etiology to patient's multiple complaints fatigue extremity pain, morning stiffness in swelling. Also reporting lower back pain without radiculopathy. Has been set up for a sleep study due to her daytime fatigue. Does slightly elevated [place] Sleepiness Scale score. (2) Low back pain: Code(s): M54.5 - Low back pain (3) Vegetarian diet: Code(s): Z78.9 - Other specified health status Orders: Orders Vitamin B12 and Folate 12/31/22 E53.8 - Deficiency of other specified B group vitamins, Z78.9 - Other specified health status Basic Metabolic Panel 12/31/22 R53.83 - Other fatigue Complete Blood Count no Diff 12/31/22 R53.83 - Other fatigue UA CC w/rflx Micro + Cult 12/31/22 R30.0 - Dysuria, R53.83 - Other fatigue XR pelvis 1-2V 12/31/22 M54.50 - Low back pain, unspecified XR lumbar spine 2-3V 12/31/22 R53.83 - Other fatigue IRON PROFILE 12/31/22 D50.9 - Iron deficiency anemia, unspecified, R53.83 - Other fatigue Magnesium 12/31/22 Z78.9 - Other specified health status TSH reflex Free T4 12/31/22 R53.83 - Other fatigue Coding Level of Care Code Est Pt Level 4 (27741) Diagnoses Fatigue R53.83 Fatigue type: unspecified Low back pain M54.5 Vegetarian diet Z78.9 Additional Codes PHQ-9 - 70066 - PHQ-9 Billing: Y ([id number])
[2022-12-31 13:37] VITALS: BP 108/62; PULSE 80; BMI 17.5
== END 2022-12-31 14:25 | disposition home or self-care (01) ==
PROVIDERS: PCP Internal Medicine; Visit Provider Physician Assistant
DX: R53.83 Other fatigue (principal); M54.50 Low back pain, unspecified; Z78.9 Other specified health status
CPT/HCPCS: 99214

== ENCOUNTER 2022-12-31 14:24 | Outpatient (REF) | payer OTHER, SELFPAY ==
--- NOTE | ~2022-12-31 | XR_ITS ---
EXAMINATION: XR LUMBOSACRAL SPINE CLINICAL INFORMATION: Pain. COMPARISON: None available. TECHNIQUE: Three views of the lumbosacral spine. FINDINGS: No acute fractures or subluxation. Mild intervertebral disc height loss and facet arthropathy at L4-L5 and L5-S1 leading to some degree of subtle neural foraminal encroachment. SI joints are symmetric. No significant paraspinal soft tissue abnormality. XR/XR lumbar spine 2-3V IMPRESSION: 1. No acute fractures or subluxation. 2. Mild lower lumbar spondylosis leading to some degree of neural foraminal encroachment. Additional evaluation with an MRI of the lumbar spine could be obtained if clinically indicated.
--- NOTE | ~2022-12-31 | XR_ITS ---
EXAMINATION: XR PELVIS CLINICAL INFORMATION: Pain. COMPARISON: None available. TECHNIQUE: AP view of the pelvis. FINDINGS: No fracture. Hip joint spaces are maintained. Alignment is anatomic. Sacroiliac joints and pubic symphysis are normal. No abnormal soft tissue calcifications. XR/XR pelvis 1-2V IMPRESSION: Normal pelvis.
[2022-12-31 15:45] LABS: Hematocrit 36.7 % (37.0-47.0); Hemoglobin 11.8 g/dl (12.0-16.0); Mean Corpuscular HGB Conc 32.2 g/dl (31.0-35.0); Mean Corpuscular Hemoglobin 29.3 pg (27.0-33.0); Mean Corpuscular Volume 91.1 fL (80.0-98.0); Platelet Count 237 X10*3/uL (160-400); Red Blood Count 4.03 X10*6/uL (4.20-5.50); Red Cell Distribution Width 14.5 % (11.0-16.0); White Blood Count 3.1 X10*3/uL (4.8-10.8)
[2022-12-31 16:18] LABS: Anion Gap 10 (12-20); Blood Urea Nitrogen 6 mg/dL (9-16); Calcium 9.4 mg/dL (8.4-10.2); Carbon Dioxide 28 mmol/L (22-29); Chloride 105 mmol/L (96-108); Estimated Glomerular Filt Rate > 60; Glucose Random 80 mg/dL (60-115); Iron 48 mcg/dL (30-160); Magnesium 2.1 mg/dL (1.6-2.6); Percent Iron Saturation 14 % (15-50); Sodium 139 mmol/L (135-145); Total Iron Binding Capacity 339 mcg/dL (228-428); Unsaturated Iron Binding 291 ug/dL
[2022-12-31 16:26] LABS: TSH reflex Free T4 1.96 uIU/mL (0.32-4.0)
[2022-12-31 16:32] LABS: Appearance Urine Clear; Color Urine Yellow; Glucose Urine UA Negative (Negative); Leukocyte Esterase Urine Negative (Negative); Nitrite Urine Negative (Negative); PH 7.5 (5.0-9.0); Specific Gravity - Urine <= 1.005 (1.005-1.025); Urine Blood Negative (Negative); Urine Ketones Negative (Negative); Urine Protein Negative (Neg-Trace)
[2022-12-31 16:39] LABS: Vitamin B12 376 pg/mL (200-900)
== END 2022-12-31 14:25 | disposition home or self-care (01) ==
LOC: HO.LAB 14:24
PROVIDERS: PCP Physician Assistant; Visit Provider Physician Assistant
DX: M54.50 Low back pain, unspecified (principal); R53.83 Other fatigue; D50.9 Iron deficiency anemia, unspecified; E53.8 Deficiency of other specified B group vitamins; Z78.9 Other specified health status; R30.0 Dysuria
CPT/HCPCS: 36415; 72100; 72170; 80048; 81003; 82607; 82746; 83540; 83735; 84443; 85027

== ENCOUNTER → 2023-02-09 13:22 | Outpatient (REF) | payer OTHER, SELFPAY | LOC: HO.SL 13:22 | PROVIDERS: PCP Physician Assistant; Visit Provider Hospitalist | DX: R40.0 Somnolence (principal); R06.83 Snoring | CPT/HCPCS: 95806 ==

== ENCOUNTER → 2023-02-09 13:32 | Outpatient (BNV) | payer OTHER, SELFPAY | PROVIDERS: PCP Physician Assistant; Visit Provider Internal Medicine | DX: R06.83 Snoring (principal) | CPT/HCPCS: 95806 ==

== ENCOUNTER 2023-05-13 13:00 | Outpatient (AMB) | payer OTHER, SELFPAY ==
[2023-05-13 13:02] VITALS: BP 100/80; PULSE 70; O2SAT 92; BMI 20.3
--- NOTE | 2023-05-13 13:02 | A.OFFPC_ITS ---
Vital Signs 05/13/23 13:02 Height 5 ft 4 in Weight 118 lb BMI 20.3 BP 100/80 Blood Pressure Location Lt brachial Position Sitting Pulse 70 Pulse Source Pulse Oximeter Pulse Oximetry (%) 92 Oxygen Delivery Method Room Air Intake Visit Reasons: pe Calibration Technician Required: Yes Calibration Technician Language: Belarusian Accompanied by: Self / Same As Patient Allergies No Known Allergies Allergy (Verified 05/13/23 13:03) Medication List - Last Reconciled 05/13/23 by Murray Hollingsworth MD No Known Home Meds Tobacco use date assessed: 10/03/22 Dental Screening Dental Screen Date: 05/13/23 Did you have a dental visit in the last 12 months?: Yes Did you have a dental problem in the last 6 months where you did not have access to dental care?: No Was dental information given to patient?: Patient has dentist HPI pe HPI Details 47-year-old female with a history of josé miguel kopenia GERD vitamin B12 deficiency in asthma last seen in September 2022 comes in for physical exam. We patient's colonoscopy is up-to-date September 2020 patient's mammogram is been declined. Patient has been seen/followed up by hematology oncology. Patient has leukopenia is benign at [facility]. Patient had a sleep study January 2023 showing negative for sleep apnea. Patient follows up in December with the nurse practitioner due to low back pain. As for the asthma advised to continue use of the short-acting beta agonist and Symbicort. asthma inhaler not using -- uses a lot supplements but does not know what names are. last week - nausea night , vomiting and diarrhea-better now [facility] Medical History (Updated 05/13/23 @ 13:33 by Murray Hollingsworth MD) Lumbar spine pain Vegetarian diet Has daytime drowsiness Change in mental status Chills Lethargy Fatigue Weight gain Cellulitis Paronychia Wrist pain, left Uterine polyp Left ovarian cyst Snoring Chronic leukopenia Chronic rhinitis Asthma Gastritis Iron deficiency anemia Vitamin B12 deficiency Bacterial vaginosis Hypovitaminosis D GERD (gastroesophageal reflux disease) Surgical History History of esophagogastroduodenoscopy (EGD) History of mandibular surgery Congenital cataract Family History Mother Diabetes Maternal Grandmother Diabetes Other Leukemia Substance abuse Social History Housing: House Alcohol intake: never Patient Tobacco Use Status: Never used Tobacco e-Cigarette/Vaping Use: Never Used Second Hand Smoke Exposure: No service: No Current occupational status: employed 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 Chase Maxwell, Yakelin Nam, Pierre Pearce and colleagues, with an educational joce from [employer]. Review of Systems Const Denies poor appetite and Denies weakness Eyes Denies no additional complaints ENT Reports Normal hearing present, Denies dizziness, Denies nasal congestion, Denies tinnitus and Denies sore throat Card Denies chest pain, Denies syncope, Denies rapid heart rate and Denies dyspnea Resp Denies cough and Denies dyspnea GI Denies change in stool character, Reports constipation, Denies diarrhea, Denies nausea and Denies vomiting Denies urinary frequency, Denies difficulty voiding and Denies dysuria Neuro Reports Normal hearing present, Denies confusion, Denies dizziness, Denies syncope and Denies weakness Psych Denies confusion Physical exam (Primary Care) Vital Signs: Last Vital Signs Pulse 70 05/13/23 13:02 BP 100/80 05/13/23 13:02 Pulse Ox 92 05/13/23 13:02 Oxygen Delivery Method Room Air 05/13/23 13:02 BMI result Body Mass Index 20.3 Tobacco/Smoking Status: Tobacco use Status Tobacco use date assessed 10/03/22 05/13/23 13:13 Patient Tobacco Use Status Never used Tobacco 05/13/23 13:13 e-Cigarette/Vaping Use Never Used 05/13/23 13:13 Thrive Assessment: Date of Thrive Assessment Date Thrive assessed 10/03/22 05/13/23 13:13 Const General: No confusion Orientation/consciousness: No confusion HENMT Head: Yes normocephalic Ears: external ears normal and TM's normal bilaterally Face and sinus: Yes normal facial exam Mouth: moist mucous membranes Throat: Yes tonsils normal Eyes Conjunctivae: conjunctivae normal Pupils: Equal, round and reactive pupils present and Pupil accommodation reflex normal Direct Ophthalmoscopy: normal light reflex Neck Neck: No lymphadenopathy Thyroid: Thyroid normal Chest Chest palpation & inspection: normal inspection of the chest Resp Effort & Inspection: normal respiratory effort and no audible wheezes Auscultation: clear to auscultation bilaterally, no crackles, no wheezes and lung sounds not diminished Cardio Rate: regular rate Rhythm: regular rhythm Peripheral pulses: radial pulses present and dorsalis pedis present GI Palpation (GI): no masses Auscultation: normal bowel sounds and normoactive bowel sounds Rectal Exam - Female: deferred Skin General skin exam: no rashes or lesions noted Rashes: no rashes Neuro General: No confusion Cranial nerves: Yes Equal, round and reactive pupils present and Yes Normal hearing present Cognition (Neuro): normal cognition Gait exam (Neuro): Normal gait present Motor exam (neuro): 5/5 motor strength present throughout Deep tendon reflexes (DTR's): Right brachioradialis reflex intensity grade: 2+, Left brachioradialis reflex intensity grade: 2+, Right patellar reflex intensity grade: 2+ and Left patellar reflex intensity grade: 2+ Extrem General: No edema Assessment and Plan Assessment & Plan (1) Annual physical exam: Code(s): Z00.00 - Encounter for general adult medical examination without abnormal findings (2) Snoring: Code(s): R06.83 - Snoring Plan: Patient had a sleep study done negative results (3) Impaired fasting blood sugar: Code(s): R73.01 - Impaired fasting glucose Plan: Decrease the amount of carbohydrate intake, pasta, bread, rice and potatoes are all sugar and that is aside from all the sweet stuff, remember that fruits are good but they are Sweet also. (4) Asthma: Code(s): J45.909 - Unspecified asthma, uncomplicated Qualifiers: Asthma severity: moderate Asthma persistence: persistent Asthma complication type: uncomplicated Qualified Code(s): J45.40 - Moderate persistent asthma, uncomplicated Plan: Patient has seen Pulmonary and has recommended short-acting beta agonist and Sym bicort but patient has been doing good and has not been using the inhalers (5) GERD (gastroesophageal reflux disease): Code(s): K21.9 - Gastro-esophageal reflux disease without esophagitis Qualifiers: Esophagitis presence: with esophagitis Esophagitis bleeding: without hemorrhage Qualified Code(s): K21.00 - Gastro-esophageal reflux disease with esophagitis, without bleeding Plan: Avoid the foods that causes that usually spicy foods, tomato products, juices, coffee, soda and foods that your sensitive to. After eating do not lie down, allow 3-4 hours before in lie down. And keep the head of bed above 30 degrees to avoid the acid from going up. (6) Anemia: Code(s): D64.9 - Anemia, unspecified Plan: will monitor for now Orders: Orders Complete Blood Count Auto Diff Today D64.9 - Anemia, unspecified Comprehensive Met. Panel Today D64.9 - Anemia, unspecified Reticulocyte Count Today D64.9 - Anemia, unspecified IRON PROFILE Today D64.9 - Anemia, unspecified Thyroid Stimulating Hormone Today D64.9 - Anemia, unspecified Vitamin B12 and Folate Today D64.9 - Anemia, unspecified Ferritin Today D64.9 - Anemia, unspecified Free T4 (Free Thyroxine) Today D64.9 - Anemia, unspecified Coding Level of Care Code Est Pt Prev Care 40-64y(44613) Diagnoses Annual physical exam Z00.00 Snoring R06.83 Impaired fasting blood sugar R73.01 Moderate persistent asthma without complication J45.40 Asthma severity: moderate Asthma persistence: persistent Asthma complication type: uncomplicated Gastroesophageal reflux disease with esophagitis without hemorrhage K21.00 Esophagitis presence: with esophagitis Esophagitis bleeding: without hemorrhage Anemia D64.9
== END 2023-05-13 13:38 | disposition home or self-care (01) ==
PROVIDERS: PCP Internal Medicine; Visit Provider Internal Medicine
DX: Z00.00 Encounter for general adult medical examination without abnormal findings (principal); R06.83 Snoring; R73.01 Impaired fasting glucose; J45.40 Moderate persistent asthma, uncomplicated; K21.00 Gastro-esophageal reflux disease with esophagitis, without bleeding; D64.9 Anemia, unspecified
CPT/HCPCS: 99396

== ENCOUNTER 2023-09-14 06:34 | Outpatient (REF) | payer OTHER, SELFPAY ==
[2023-09-14 06:47] LABS: MANUAL DIFF FLAG NO
[2023-09-14 07:11] LABS: Basophils Percent Auto 0.6 % (0-2); Eosinophils Absolute Auto 0.1 X10*3/uL (0.0-0.4); Eosinophils Percent Auto 2.7 % (0-4); Hematocrit 38.2 % (37.0-47.0); Hemoglobin 12.6 g/dl (12.0-16.0); Imm Gran Abs Auto 0.01 X10*3/uL (0.00-0.03); Imm Gran Pct Auto 0.3 % (0.0-0.4); Lymphocytes Absolute Auto 1.4 X10*3/uL (1.2-4.9); Lymphocytes Percent Auto 43.8 % (20-40); Mean Corpuscular Hemoglobin 31.9 pg (27.0-33.0); Mean Corpuscular Volume 96.7 fL (80.0-98.0); Mean Platelet Volume 10.3 fL (9.4-12.3); Monocytes Absolute Auto 0.3 X10*3/uL (0.1-1.2); Monocytes Percent Auto 10.3 % (2-11); Neutrophils Absolute Auto 1.4 x10*3/uL (2.0-8.3); Neutrophils Percent Auto 42.3 % (45-73); Platelet Count 227 X10*3/uL (160-400); Red Blood Count 3.95 X10*6/uL (4.20-5.50); Red Cell Distribution Width 12.8 % (11.0-16.0); White Blood Count 3.3 X10*3/uL (4.8-10.8)
== END 2023-09-14 06:35 | disposition home or self-care (01) ==
LOC: HO.LAB 06:34
PROVIDERS: PCP Internal Medicine; Visit Provider Obstetrics & Gynecology
DX: R10.2 Pelvic and perineal pain (principal); R53.83 Other fatigue
CPT/HCPCS: 36415; 85025

== ENCOUNTER 2023-10-19 08:04 | Outpatient (AMB) | payer OTHER, SELFPAY ==
--- NOTE | 2023-10-19 08:09 | AM.OFFWIN_ITS ---
Intake Vital Signs 10/19/23 08:11 Height 5 ft 4 in Weight 121 lb BMI 20.8 BP 98/64 Blood Pressure Location Rt brachial Position Sitting Respiration 12 Pulse 72 Pulse Source Pulse Oximeter Temp 98.2 F Temp Source Oral Pulse Oximetry (%) 99 Oxygen Delivery Method Room Air Intake Visit Reasons: Back pain Intake Note: Lower back pain Patient Tobacco Use Status: Never used Tobacco Is last menstrual period known: Yes Last menstrual period: 10/14/23 Allergies No Known Allergies Allergy (Verified 10/19/23 08:19) Medication List - Last Reconciled 10/19/23 by MANUEL Ruff No Known Home Meds Do you need a note to return to daycare/school/sports/work: Yes HPI HPI Comments History of Present Illness Details Here today with transverse low back pain started upon waking this aM This has happened before however reports its worse today Feels cold and febrile + nausea + suprapubic pain LMP 2 weeks ago. Denies chance of Denies urinary or bowel changes, trauma, abd js [facility] Medical History (Updated 10/19/23 @ 09:09 by MANUEL Ruff) Lumbar spine pain Vegetarian diet Has daytime drowsiness Change in mental status Chills Lethargy Fatigue Weight gain Cellulitis Paronychia Wrist pain, left Uterine polyp Left ovarian cyst Snoring Chronic leukopenia Chronic rhinitis Asthma Gastritis Iron deficiency anemia Vitamin B12 deficiency Bacterial vaginosis Hypovitaminosis D GERD (gastroesophageal reflux disease) Surgical History History of esophagogastroduodenoscopy (EGD) History of mandibular surgery Congenital cataract Family History Mother Diabetes Maternal Grandmother Diabetes Other Leukemia Substance abuse Social History Housing: House Alcohol intake: never Patient Tobacco Use Status: Never used Tobacco e-Cigarette/Vaping Use: Never Used Second Hand Smoke Exposure: No service: No Current occupational status: employed 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 Current occupational exposures/hazards: No Sexual orientation: Straight/Heterosexual Gender identity: Female Cognitive needs: No Hearing needs: No Vision needs: Yes Female Reproductive History Menstrual Age of Menarche: 11 Date of last menstrual period: 10/14/23 Physical Exam Vital Signs: Last Vital Signs Temp 98.2 F 10/19/23 08:11 Pulse 72 10/19/23 08:11 Resp 12 10/19/23 08:11 BP 98/64 10/19/23 08:11 Pulse Ox 99 10/19/23 08:11 Oxygen Delivery Method Room Air 10/19/23 08:11 BMI result Body Mass Index 20.8 Const Other: Awake alert NAD Sclera and conjunctiva clear bilat MMM, pharynx WNL RRR LS CTAB Abdomen soft, suprapubic tenderness with palpation, normoactive bowel sounds, no rebound tenderness or peritoneal signs No CVAT bilat, unable to reproduce the pain that she is complaining of, straight leg raise negative, grossly normal neuro exam Results AMB Urinalysis Dipstick UR Leukocytes Small Last Edit by Rocio Kaplan CMA on 10/19/23 09:13 UR Nitrite Negative Last Edit by Rocio Kaplan, EMANI on 10/19/23 09:13 UR Urobilinogen Normal Last Edit by Rocio Kaplan, EMANI on 10/19/23 09:13 UR Protein Trace Last Edit by Rocio Kaplan, EMANI on 10/19/23 09:13 UR Ph 5.5 Last Edit by Rocio Kaplan, EMANI on 10/19/23 09:13 UR Blood Trace Last Edit by Rocio Kaplan, EMANI on 10/19/23 09:13 UR Specific [place] 1.030 Last Edit by Rocio Kaplan, EMANI on 10/19/23 09: 13 UR Ketone Trace Last Edit by Rocio Kaplan, EMANI on 10/19/23 09:13 UR Bilirubin Small Last Edit by Rocio Kaplan, EMANI on 10/19/23 09:13 UR Glucose Negative Last Edit by Rocio Kaplan CMA on 10/19/23 09:13 Assessment & Plan Assessment & Plan (1) UTI (urinary tract infection): Code(s): N39.0 - Urinary tract infection, site not specified Qualifiers: Hematuria presence: with hematuria Urinary tract infection type: acute cystitis Qualified Code(s): N30.01 - Acute cystitis with hematuria Plan: . Orders: Orders AMB Urinalysis Dipstick Today M54.9 - Dorsalgia, unspecified Medications: New nitrofurantoin monohyd/m-cryst 100 mg must administer with a meal/food 100 mg PO Q12H 7 days 14 caps 0RF Patient Instructions: Given the urine results today likely cause of her symptoms is related to a UTI. The plan will be to treat with antibiotics. Advised to take as directed. Hydrate liberally. If she continues to have any symptoms or worsening of symptoms after completion of antibiotics did encourage her to return to office or follow up with her primary care provider. Coding Level of Care Code Est Pt Level 4 (42424) Diagnoses Acute cystitis with hematuria N30.01 Hematuria presence: with hematuria Urinary tract infection type: acute cystitis
[2023-10-19 08:11] VITALS: BP 98/64; PULSE 72; RESP 12; TEMP 36.8; O2SAT 99; BMI 20.8
== END 2023-10-19 09:14 | disposition home or self-care (01) ==
PROVIDERS: PCP Internal Medicine; Visit Provider Nurse Practitioner Family
DX: N30.01 Acute cystitis with hematuria (principal); M54.9 Dorsalgia, unspecified
CPT/HCPCS: 81002; 99214

== ENCOUNTER 2023-10-30 06:56 | Outpatient (REF) | payer OTHER, SELFPAY ==
[2023-10-30 07:59] LABS: Appearance Urine Clear; Color Urine Yellow; Glucose Urine UA Negative (Negative); Leukocyte Esterase Urine Negative (Negative); Nitrite Urine Negative (Negative); Specific Gravity - Urine <= 1.005 (1.005-1.025); UMIC TRIGGER UACC YES; Urine Blood Moderate (2+) (Negative); Urine Ketones Negative (Negative); Urine Protein Negative (Neg-Trace)
[2023-10-30 08:01] LABS: Basophils Percent Auto 1.1 % (0-2); Eosinophils Absolute Auto 0.1 X10*3/uL (0.0-0.4); Eosinophils Percent Auto 3.2 % (0-4); Hematocrit 37.7 % (37.0-47.0); Hemoglobin 12.4 g/dl (12.0-16.0); Immature Retic Fraction 3.3 % (3.0-15.9); Lymphocytes Percent Auto 36.8 % (20-40); MANUAL DIFF FLAG SCAN; Mean Corpuscular HGB Conc 32.9 g/dl (31.0-35.0); Mean Corpuscular Hemoglobin 31.2 pg (27.0-33.0); Mean Platelet Volume 10.5 fL (9.4-12.3); Monocytes Absolute Auto 0.4 X10*3/uL (0.1-1.2); Monocytes Percent Auto 14.8 % (2-11); Neutrophils Absolute Auto 1.2 x10*3/uL (2.0-8.3); Neutrophils Percent Auto 44.1 % (45-73); Platelet Count 200 X10*3/uL (160-400); Red Blood Count 3.97 X10*6/uL (4.20-5.50); Red Cell Distribution Width 13.1 % (11.0-16.0); Retic HGB Equivalent 35.9 pg (30.0-35.0); Reticulocyte Percent 0.7 % (0.5-1.8); Reticulocytes Absolute 0.028 X10*6/uL (0.026-0.095); SCAN SMEAR FLAG 1; White Blood Count 2.8 X10*3/uL (4.8-10.8)
[2023-10-30 08:06] LABS: Bacteria Urine None Seen (None Seen); Hyaline Casts Urine 0-2 /LPF (0-2); RBC Urine 0-2 /HPF (0-2); Squamous Epithelial Cell Urine 0-2 /HPF (0-2); WBC Urine 0-5 /HPF (0-5)
[2023-10-30 08:37] LABS: SLIDE REVIEW VERIFIED
[2023-10-30 08:51] LABS: Alanine Aminotransferase 13 U/L (0-31); Albumin Level 3.9 g/dL (3.5-5.0); Alkaline Phosphatase 45 U/L (39-117); Anion Gap 12 (12-20); Aspartate Amino Transferase 22 U/L (5-31); Bilirubin Total 0.4 mg/dL (0.0-1.0); Blood Urea Nitrogen 6 mg/dL (9-16); Calcium 8.7 mg/dL (8.4-10.2); Carbon Dioxide 26 mmol/L (22-29); Chloride 99 mmol/L (96-108); Estimated Glomerular Filt Rate > 60; Glucose Random 87 mg/dL (60-115); Iron 76 mcg/dL (30-160); Percent Iron Saturation 30 % (15-50); Potassium 3.7 mmol/L (3.3-5.1); Sodium 133 mmol/L (135-145); Total Iron Binding Capacity 255 mcg/dL (228-428); Total Protein 6.9 g/dL (6.5-8.0); Unsaturated Iron Binding 179 ug/dL
[2023-10-30 08:56] LABS: Ferritin 18 ng/mL (10-250); Free T4 (Free Thyroxine) 0.82 ng/dL (0.71-1.85); Thyroid Stimulating Hormone 0.96 uIU/mL (0.32-4.0)
[2023-10-30 09:06] LABS: Vitamin B12 513 pg/mL (200-900)
== END 2023-10-30 06:57 | disposition home or self-care (01) ==
LOC: HO.LAB 06:56
PROVIDERS: PCP Internal Medicine; Visit Provider Internal Medicine
DX: D64.9 Anemia, unspecified (principal)
CPT/HCPCS: 36415; 80053; 81001; 81003; 82607; 82728; 82746; 83540; 84439; 84443; 85025; 85045

== ENCOUNTER 2023-11-18 09:26 | Outpatient (AMB) | payer OTHER, SELFPAY ==
[2023-11-18 09:27] VITALS: BP 102/72; PULSE 81; O2SAT 98; BMI 21.1
--- NOTE | 2023-11-18 09:27 | A.OFFPC_ITS ---
Vital Signs 11/18/23 09:27 Height 5 ft 4 in Weight 123 lb BMI 21.1 BP 102/72 Blood Pressure Location Lt brachial Position Sitting Pulse 81 Pulse Source Pulse Oximeter Pulse Oximetry (%) 98 Oxygen Delivery Method Room Air Intake Visit Reasons: Back pain Allergies No Known Allergies Allergy (Verified 11/18/23 09:28) Medication List - Last Reconciled 11/18/23 by Murray Hollingsworth MD sennosides-docusate sodium 8.6-50 mg (Senna Plus) 1 - 2 tab-caps (1 - 2 x 8.6-50 mg) PO BEDTIME Tobacco use date assessed: 11/18/23 Dental Screening Dental Screen Date: 11/18/23 Did you have a dental visit in the last 12 months?: Yes Did you have a dental problem in the last 6 months where you did not have access to dental care?: No Was dental information given to patient?: Patient has dentist HPI Back pain HPI Details 48-year-old female with a history of imp aired glucose tolerance asthma GERD and anemia coming in for follow-up . Last seen for physical exam in 05/06/2023. Patient's colonoscopy was 10/04/2020. Declined mammogram. Review of the notes has been follow-up with gynecology had pelvic pain and abnormal uterine bleeding was seen in 2021 she had ASCUS HPV positive normal colposcopy with negative Paps. Concern about leukopenia. Patient did see Hematology- Oncology already in 02/04/2023. This leukopenia has been present since 2019 workup has been negative encouraged to continue taking iron and vitamin supplements.PAtient complains of pain on bilateral sacroiliac area. . 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 [facility] Medical History (Updated 11/18/23 @ 09:59 by Murray Hollingsworth MD) Lumbar spine pain Vegetarian diet Has daytime drowsiness Change in mental status Chills Lethargy Fatigue Weight gain Cellulitis Paronychia Wrist pain, left Uterine polyp Left ovarian cyst Snoring Chronic leukopenia Chronic rhinitis Asthma Gastritis Iron deficiency anemia Vitamin B12 deficiency Bacterial vaginosis Hypovitaminosis D GERD (gastroesophageal reflux disease) Surgical History History of esophagogastroduodenoscopy (EGD) History of mandibular surgery Congenital cataract Family History Mother Diabetes Maternal Grandmother Diabetes Other Leukemia Substance abuse Social History Housing: House Alcohol intake: never Patient Tobacco Use Status: Never used Tobacco e-Cigarette/Vaping Use: Never Used Second Hand Smoke Exposure: No service: No Current occupational status: employed 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 1. Little interest or pleasure in doing things: not at all 2. Feeling down, depressed, or hopeless: not at all 3. Trouble falling or staying asleep, or sleeping too much: not at all 4. Feeling tired or having little energy: not at all 5. Poor appetite or overeating: not at all 6. Feeling bad about yourself - or that you are a failure or have let yourself or your family down: not at all 7. Trouble concentrating on things, such as reading the newspaper or watching television: not at all 8. Moving or speaking so slowly that other people could have noticed. Or the opposite - being so fidgety or restless that you have been moving around a lot more than usual: not at all 9. Thoughts that you would be better off or of hurting yourself in some way: not at all Total score: 0 Depression Screening Interpretation: Negative Depression Screening Done: Yes Source: Developed by Drs. Chase Maxwell, Yakelin Nam, Pierre Pearce and colleagues, with an educational joce from [employer]. Thrive Questionnaire Date Thrive assessed: 11/18/23 I am a: Patient What is your living situation today?: I have a steady place to live Within the past 12 months, did the food you bought not last and you didn't have the money to get more?: Never true Within the past 12 months, did you worry whether your food would run out before you got money to buy more?: Never true Do you have trouble paying for medicines?: No Do you have trouble getting transportation to medical appointments?: No Do you have trouble paying your heating and electricity bill?: No Do you have trouble taking care of your child, family member or friend?: No Do you have trouble with day-to-day activities such as bathing, preparing meals, shopping, managing finances, etc.?: No Are you currently unemployed and looking for a job?: No Are you interested in more education?: No Currently or been in a relationship where the following occur: No concerns reported THRIVE Score: 0 AUDIT C Alcohol Use Questionnaire (AUDIT-C) 1. How often do you have a drink containing alcohol?: Never 3. How often do you have six or more drinks on one occasion?: Never Total Score: 0 CLARIBEL-7 AMB Questionnaire CLARIBEL-7 Date CLARIBEL - 7 assessed: 11/18/23 Feeling nervous, anxious, or on edge: 0 = Not at all Not being able to stop or control worryin = Not at all Worrying too much about different things: 0 = Not at all Trouble relaxin = Not at all Being so restless that it is hard to sit still: 0 = Not at all Becoming easily annoyed or irritable: 0 = Not at all Feeling afraid as if something awful might happen: 0 = Not at all Total CLARIBEL-7 score (0-4 normal; 5-9 mild; 10-14 moderate; 15-21 severe): 0 Source: Developed by Drs. Chase Maxwell, Yakelin Nam, Pierre Pearce and colleagues, with an educational joce from [employer]. Physical exam (Primary Care) Vital Signs: Last Vital Signs Pulse 81 11/18/23 09:27 BP 102/72 11/18/23 09:27 Pulse Ox 98 11/18/23 09:27 Oxygen Delivery Method Room Air 11/18/23 09:27 BMI result Body Mass Index 21.1 Tobacco/Smoking Status: Tobacco use Status Tobacco use date assessed 11/18/23 11/18/23 09:39 Patient Tobacco Use Status Never used Tobacco 11/18/23 09:39 e-Cigarette/Vaping Use Never Used 11/18/23 09:39 PHQ-9: PHQ-9 Score PHQ-9: Total score 0 11/18/23 09:46 Depression Screening Interpretation: Negative Thrive Assessment: Date of Thrive Assessment Date Thrive assessed 11/18/23 11/18/23 09:39 Currently or been in a relationship where the following occur: No concerns reported Const General: alert; No acute distress Eyes Conjunctivae: conjunctivae normal Resp Auscultation: clear to auscultation bilaterally Cardio Rate: regular rate Rhythm: regular rhythm GI Inspection: Yes normal to inspection Extrem General: Yes normal to inspection and No edema Results AMB Urinalysis, Automated UA Leukoctes 0 Thu/uL Last Edit by Sarita Grimm CMA on 11/18/23 09:55 UA Nitrite Negative Last Edit by Sarita Grimm, CLINICAL AIDE on 11/18/23 09:55 UA Urobilinogen 0.2 mg/dL Last Edit by Sarita Grimm, EMANI on 11/18/23 09:55 UA Protein 0 mg/dL Last Edit by Sarita Grimm, EMANI on 11/18/23 09:55 UA pH 8.5 Last Edit by Sarita Grimm, [facility] on 11/18/23 09:55 UA Blood 80 Horacio/uL Last Edit by Sarita Grimm, [facility] on 11/18/23 09:55 UA Specific [place] 1.005 Last Edit by Sarita Grimm, EMANI on 11/18/23 09:55 UA Ketone Negative Last Edit by Sarita Grimm, EMANI on 11/18/23 09:55 UA Bilirubin 0 mg/dL Last Edit by Sarita Grimm, EMANI on 11/18/23 09:55 UA Glucose 0 mg/dL Last Edit by Sarita Grimm, [facility] on 11/18/23 09:55 Assessment and Plan Assessment & Plan (1) Chronic leukopenia: Comment: Sees Dr. Batres 2021 Code(s): D72.819 - Decreased white blood cell count, unspecified Plan: Discussed with the patient that the low white blood cell has been present since 2019 and has had workup with hematology already and this is chronic and will continue to monitor. Advised continue with vitamins and iron (2) Low back pain: Code(s): M54.50 - Low back pain, unspecified Plan: Urinalysis requested negative (3) GERD (gastroesophageal reflux disease): Code(s): K21.9 - Gastro-esophageal reflux disease without esophagitis Qualifiers: Esophagitis presence: with esophagitis Esophagitis bleeding: without hemorrhage Qualified Code(s): K21.00 - Gastro-esophageal reflux disease with esophagitis, without bleeding Plan: Avoid the foods that causes that usually spicy foods, tomato products, juices, coffee, soda and foods that your sensitive to. After eating do not lie down, allow 3-4 hours before in lie down. And keep the head of bed above 30 degrees to avoid the acid from going up. (4) Asthma: Code(s): J45.909 - Unspecified asthma, uncomplicated Qualifiers: Asthma severity: moderate Asthma persistence: persistent Asthma complication type: uncomplicated Qualified Code(s): J45.40 - Moderate persistent asthma, uncomplicated Plan: Stable (5) Constipation: Code(s): K59.00 - Constipation, unspecified Plan: diet high in fiber, keep well hydrated and keep active . Although discussed not to drink too much as the sodium did come down. (6) Abnormal uterine bleeding (AUB): Code(s): N93.9 - Abnormal uterine and vaginal bleeding, unspecified Plan: advised to ff up with gynecology Orders: Orders AMB Urinalysis Automated Today M54.50 - Low back pain, unspecified PT Evaluation and Treatment Today M54.50 - Low back pain, unspecified Medications: New sennosides-docusate sodium 8.6-50 mg (Senna Plus) 1 - 2 tab-caps (1 - 2 x 8.6-50 mg) PO BEDTIME 60 caps 3RF K59.00 - Constipation, unspecified Coding Level of Care Code Est Pt Level 4 (38819) Diagnoses Chronic leukopenia D72.819 Low back pain M54.50 Gastroesophageal reflux disease with esophagitis without hemorrhage K21.00 Esophagitis presence: with esophagitis Esophagitis bleeding: without hemorrhage Moderate persistent asthma without complication J45.40 Asthma severity: moderate Asthma persistence: persistent Asthma complication type: uncomplicated Constipation K59.00 Abnormal uterine bleeding (AUB) N93.9 Additional Codes PHQ-9 - 68504 - PHQ-9 Billing: ([id number])
== END 2023-11-18 10:06 | disposition home or self-care (01) ==
PROVIDERS: PCP Internal Medicine; Visit Provider Internal Medicine
DX: D72.819 Decreased white blood cell count, unspecified (principal); M54.50 Low back pain, unspecified; K21.00 Gastro-esophageal reflux disease with esophagitis, without bleeding; J45.40 Moderate persistent asthma, uncomplicated; K59.00 Constipation, unspecified; N93.9 Abnormal uterine and vaginal bleeding, unspecified
CPT/HCPCS: 81003; 99214

== ENCOUNTER 2024-05-16 17:04 | Outpatient (AMB) | payer OTHER, SELFPAY ==
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
[2024-05-16 17:31] VITALS: BP 118/64; PULSE 92; O2SAT 96; BMI 22.8
== END 2024-05-16 18:33 | disposition home or self-care (01) ==
PROVIDERS: PCP Internal Medicine; Visit Provider Internal Medicine
DX: Z00.00 Encounter for general adult medical examination without abnormal findings (principal); J45.40 Moderate persistent asthma, uncomplicated; K21.00 Gastro-esophageal reflux disease with esophagitis, without bleeding; D72.819 Decreased white blood cell count, unspecified; K59.00 Constipation, unspecified; Z23 Encounter for immunization

== ENCOUNTER 2024-05-19 06:07 | Outpatient (REF) | payer OTHER, SELFPAY ==
[2024-05-19 06:25] LABS: MANUAL DIFF FLAG NO
[2024-05-19 07:38] LABS: Basophils Absolute Auto 0.1 X10*3/uL (0.0-0.2); Basophils Percent Auto 1.6 % (0-2); Eosinophils Absolute Auto 0.1 X10*3/uL (0.0-0.4); Eosinophils Percent Auto 2.8 % (0-4); Hematocrit 36.6 % (37.0-47.0); Hemoglobin 11.9 g/dl (12.0-16.0); Imm Gran Abs Auto 0.01 X10*3/uL (0.00-0.03); Imm Gran Pct Auto 0.3 % (0.0-0.4); Lymphocytes Absolute Auto 1.2 X10*3/uL (1.2-4.9); Lymphocytes Percent Auto 35.9 % (20-40); Mean Corpuscular HGB Conc 32.5 g/dl (31.0-35.0); Mean Corpuscular Hemoglobin 31.2 pg (27.0-33.0); Mean Corpuscular Volume 95.8 fL (80.0-98.0); Mean Platelet Volume 10.6 fL (9.4-12.3); Monocytes Absolute Auto 0.3 X10*3/uL (0.1-1.2); Monocytes Percent Auto 10.3 % (2-11); Neutrophils Absolute Auto 1.6 x10*3/uL (2.0-8.3); Neutrophils Percent Auto 49.1 % (45-73); Platelet Count 249 X10*3/uL (160-400); Red Blood Count 3.82 X10*6/uL (4.20-5.50); White Blood Count 3.2 X10*3/uL (4.8-10.8)
[2024-05-19 07:46] LABS: Estimated Average Glucose 103 mg/dL; Hemoglobin A1C 104.7092 umol/L; Hemoglobin A1c % 5.2 % (<6.0); Total Hemoglobin (HGBA1C) 3117.9219 umol/L
[2024-05-19 07:54] LABS: Appearance Urine Clear; Color Urine Yellow; Glucose Urine UA Negative (Negative); Leukocyte Esterase Urine Negative (Negative); Nitrite Urine Negative (Negative); Specific Gravity - Urine <= 1.005 (1.005-1.025); Urine Blood Negative (Negative); Urine Ketones Negative (Negative); Urine Protein Negative (Neg-Trace)
[2024-05-19 08:37] LABS: Alanine Aminotransferase 19 U/L (0-31); Albumin Level 3.9 g/dL (3.5-5.0); Alkaline Phosphatase 43 U/L (39-117); Anion Gap 8 (12-20); Aspartate Amino Transferase 22 U/L (5-31); Bilirubin Total 0.4 mg/dL (0.0-1.0); Blood Urea Nitrogen 6 mg/dL (9-16); Calcium 8.8 mg/dL (8.4-10.2); Carbon Dioxide 27 mmol/L (22-29); Chloride 108 mmol/L (96-108); Cholesterol 177 mg/dL (<200); Estimated Glomerular Filt Rate > 60; Glucose Random 86 mg/dL (60-115); HDL Cholesterol 58 mg/dL (>40); LDL Cholesterol Calculated 104 mg/dL (<100); Magnesium 1.9 mg/dL (1.6-2.6); Potassium 3.9 mmol/L (3.3-5.1); Sodium 139 mmol/L (135-145); Triglycerides 78 mg/dL (<150)
[2024-05-19 08:55] LABS: Free T4 (Free Thyroxine) 0.84 ng/dL (0.71-1.85); Thyroid Stimulating Hormone 1.91 uIU/mL (0.32-4.0); Vitamin D 25-OH Total 12.7 ng/mL (>30)
[2024-05-19 09:06] LABS: Folate 11.2 ng/mL (> or = 4.0); Vitamin B12 297 pg/mL (200-900)
[2024-05-22 03:53] LABS: TS Negative Control Passed; TS Panel A 1; TS Panel B 1; TS Positive Control Passed; TSpotTB Negative (Negative)
== END 2024-05-19 06:08 | disposition home or self-care (01) ==
LOC: HO.LAB 06:07
PROVIDERS: PCP Internal Medicine; Visit Provider Internal Medicine
DX: R73.01 Impaired fasting glucose (principal); R30.0 Dysuria; E78.00 Pure hypercholesterolemia, unspecified
CPT/HCPCS: 36415; 80053; 80061; 81003; 82306; 82607; 82746; 83036; 83735; 84439; 84443; 85025; 86481

== ENCOUNTER 2024-09-05 17:31 | Outpatient (AMB) | payer OTHER, SELFPAY ==
[2024-09-05 17:44] VITALS: BP 118/80; PULSE 56; O2SAT 99; BMI 21.8
--- NOTE | 2024-09-05 17:44 | A.OFFPC_ITS ---
Vital Signs 09/05/24 17:44 Height 5 ft 4 in Weight 127 lb BMI 21.8 BP 118/80 Blood Pressure Location Lt brachial Position Sitting Pulse 56 Pulse Source Pulse Oximeter Pulse Oximetry (%) 99 Oxygen Delivery Method Room Air Intake Visit Reasons: Gastroesophageal reflux disease (GERD) Manager Diversity Required: Yes Manager Diversity Language: Polish Accompanied by: Self / Same As Patient Allergies No Known Allergies Allergy (Verified 09/05/24 17:57) Medication List - Last Reconciled 09/05/24 by Murray Hollingswotrh MD amoxicillin-pot clavulanate 500-125 mg 1 tab PO TID [Biogenetics NAtural injections 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)] cholecalciferol (vitamin D3) 50 mcg PO DAILY 90 days [collagen gummy PO] sennosides-docusate sodium 8.6-50 mg (Senna Plus) 1 - 2 tab-caps (1 - 2 x 8.6-50 mg) PO BEDTIME vitamin B complex 1 cap PO DAILY Tobacco use date assessed: 09/05/24 Dental Screening Dental Screen Date: 09/05/24 Did you have a dental visit in the last 12 months?: No Did you have a dental problem in the last 6 months where you did not have access to dental care?: No Was dental information given to patient?: Patient has dentist HPI Gastroesophageal reflux disease (GERD) HPI Details 3 days fever, coughing, did not test co vid, SAMUEL, mild sore throat, , no b./b sx. 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 PAtient types up on her phone a translation state have jury appoinment this summer and Needs to be there- states alot of stress and asking for then she then she took her phone of and stop me from typing. [facility] Medical History (Updated 09/05/24 @ 18:12 by Murray Hollingsworth MD) Lumbar spine pain Vegetarian diet Has daytime drowsiness Change in mental status Chills Lethargy Fatigue Weight gain Cellulitis Paronychia Wrist pain, left Uterine polyp Left ovarian cyst Snoring Chronic leukopenia Chronic rhinitis Asthma Gastritis Iron deficiency anemia Vitamin B12 deficiency Bacterial vaginosis Hypovitaminosis D GERD (gastroesophageal reflux disease) Surgical History History of esophagogastroduodenoscopy (EGD) History of mandibular surgery Congenital cataract Family History Mother Diabetes Maternal Grandmother Diabetes Other Leukemia Substance abuse Social History Housing: House Alcohol intake: never Patient Tobacco Use Status: Never used Tobacco e-Cigarette/Vaping Use: Never Used Second Hand Smoke Exposure: No service: No Current occupational status: employed 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 1. Little interest or pleasure in doing things: not at all 2. Feeling down, depressed, or hopeless: not at all 3. Trouble falling or staying asleep, or sleeping too much: not at all 4. Feeling tired or having little energy: not at all 5. Poor appetite or overeating: not at all 6. Feeling bad about yourself - or that you are a failure or have let yourself or your family down: not at all 7. Trouble concentrating on things, such as reading the newspaper or watching television: not at all 8. Moving or speaking so slowly that other people could have noticed. Or the opposite - being so fidgety or restless that you have been moving around a lot more than usual: not at all 9. Thoughts that you would be better off or of hurting yourself in some way: not at all Total score: 0 Depression Screening Interpretation: Negative Depression Screening Done: Yes Source: Developed by Drs. Chase Maxwell, Yakelin Nam, Pierre Pearce and colleagues, with an educational joce from [employer]. Thrive Questionnaire Date Thrive assessed: 09/05/24 I am a: Patient What is your living situation today?: I have a place to live, but I am worried about losing it in the future Within the past 12 months, did the food you bought not last and you didn't have the money to get more?: Never true Within the past 12 months, did you worry whether your food would run out before you got money to buy more?: Never true Do you have trouble paying for medicines?: No Do you have trouble getting transportation to medical appointments?: No Do you have trouble paying your heating and electricity bill?: No Do you have trouble taking care of your child, family member or friend?: No Do you have trouble with day-to-day activities such as bathing, preparing meals, shopping, managing finances, etc.?: No Are you currently unemployed and looking for a job?: No Are you interested in more education?: Yes Please select the resources that you would like help with: Education Currently or been in a relationship where the following occur: No concerns reported THRIVE Score: 1 AUDIT C Alcohol Use Questionnaire (AUDIT-C) 1. How often do you have a drink containing alcohol?: Never Total Score: 0 CLARIBEL-7 AMB Questionnaire CLARIBEL-7 Date CLARIBEL - 7 assessed: 09/05/24 Feeling nervous, anxious, or on edge: 0 = Not at all Not being able to stop or control worryin = Not at all Worrying too much about different things: 0 = Not at all Trouble relaxin = Not at all Being so restless that it is hard to sit still: 0 = Not at all Becoming easily annoyed or irritable: 0 = Not at all Feeling afraid as if something awful might happen: 0 = Not at all Total CLARIBEL-7 score (0-4 normal; 5-9 mild; 10-14 moderate; 15-21 severe): 0 Source: Developed by Drs. Chase Maxwell, Yakelin Nam, Pierre Pearce and colleagues, with an educational joce from [employer]. Physical exam (Primary Care) Vital Signs: Last Vital Signs Pulse 56 09/05/24 17:44 BP 118/80 09/05/24 17:44 Pulse Ox 99 09/05/24 17:44 Oxygen Delivery Method Room Air 09/05/24 17:44 BMI result Body Mass Index 21.8 Tobacco/Smoking Status: Tobacco use Status Tobacco use date assessed 09/05/24 09/05/24 17:58 Patient Tobacco Use Status Never used Tobacco 09/05/24 17:58 e-Cigarette/Vaping Use Never Used 09/05/24 17:58 PHQ-9: PHQ-9 Score PHQ-9: Total score 0 09/05/24 17:58 Depression Screening Interpretation: Negative Thrive Assessment: Date of Thrive Assessment Date Thrive assessed 09/05/24 09/05/24 17:58 Currently or been in a relationship where the following occur: No concerns reported Const Other: tender on the L maxillary area General: alert; No acute distress Eyes Conjunctivae: conjunctivae normal Resp Auscultation: clear to auscultation bilaterally Cardio Rate: regular rate Rhythm: regular rhythm GI Inspection: Yes normal to inspection Extrem General: Yes normal to inspection and No edema Coding Level of Care Code Est Pt Level 4 (59483) Diagnoses Anemia D64.9 Vitamin B12 deficiency E53.8 Gastroesophageal reflux disease with esophagitis without hemorrhage K21.00 Esophagitis presence: with esophagitis Esophagitis bleeding: without hemorrhage Moderate persistent asthma without complication J45.40 Asthma severity: moderate Asthma persistence: persistent Asthma complication type: uncomplicated Vitamin D deficiency E55.9 Sinus congestion R09.81 Assessment & Plan Assessment & Plan (1) Anemia: Code(s): D64.9 - Anemia, unspecified Category: Medical Plan: Chronic and continuing to monitor (2) Vitamin B12 deficiency: Code(s): E53.8 - Deficiency of other specified B group vitamins Category: Medical Plan: Discussed about vitamin B12 1000 mcg once a day (3) GERD (gastroesophageal reflux disease): Code(s): K21.9 - Gastro-esophageal reflux disease without esophagitis Category: Medical Qualifiers: Esophagitis presence: with esophagitis Esophagitis bleeding: without hemorrhage Qualified Code(s): K21.00 - Gastro-esophageal reflux disease with esophagitis, without bleeding Plan: Avoid the foods that causes that usually spicy foods, tomato products, juices, coffee, soda and foods that your sensitive to. After eating do not lie down, allow 3-4 hours before in lie down. And keep the head of bed above 30 degrees to avoid the acid from going up. (4) Asthma: Code(s): J45.909 - Unspecified asthma, uncomplicated Category: Medical Qualifiers: Asthma severity: moderate Asthma persistence: persistent Asthma complication type: uncomplicated Qualified Code(s): J45.40 - Moderate persistent asthma, uncomplicated Plan: Stable (5) Vitamin D deficiency: Code(s): E55.9 - Vitamin D deficiency, unspecified Category: Medical (6) Sinus congestion: Code(s): R09.81 - Nasal congestion Category: Medical Plan History of Present Illness The patient is a 49-year-old female presenting with symptoms suggestive of sinusitis. She reports three days of fever, congestion, and facial and neck pressure. She denies having a sore throat, diarrhea, or urinary issues. The patient has been experiencing mild anemia and chronic leukopenia, with laboratory results indicating a hemoglobin level of 11.9 g/dL and a low vitamin D level of 12 ng/mL. Further, vitamin B12 levels were noted at 297 pg/mL. These were discussed during her last physical examination and requisite follow-ups are in place for monitoring. Her previous care involved management of GERD and impaired glucose tolerance. OTC Mucinex use is in place for recent sinus symptoms yet was noted to be over- utilized in attempts to ease congestion. The patient reports residing alone, enjoying solitude, and gardening. Although she encounters some work-related fatigue, she connects her tiredness to workload demands. She engages with limited direct sunlight exposure due to geographical constraints, compounding her deficient vitamin D levels. She expresses anxiety about an impending jury duty, contemplating strategies like medication for stress but has not pursued interventions formally. Health Maintenance - Blood work previously done in May 2024 indicated mild anemia and leukopenia which are being monitored. - Patient's vitamin D level was noted to be 12 ng/mL. Recommended supplements and encouraged obtaining sunlight exposure. - Vitamin B12 level was slightly low at 297 pg/mL. Continuation with B complex supplements and dietary improvements including increased fish and eggs intake discussed. - LDL cholesterol noted at 104, within favorable range. - Last colonoscopy performed in September 2020. - Patient declined mammogram. Social History - Resides alone and reports enjoying her solitude, maintaining a mini indoor garden. - Experiences tiredness attributed to workload and general life activities. - Experiencing anxiety related to being called for jury duty. Review of Systems - General: Reports fever and fatigue. - HEENT: Reports congestion, facial, and neck pressure. Denies sore throat. - Respiratory: Reports cough. Denies shortness of breath. - Gastrointestinal: Denies diarrhea. - Genitourinary: Denies difficulty with urination. - Functional/Activity: Difficulty managing stress, related to pending jury duty. Physical Exam - HEENT- Sinus tenderness noted. Results - Labs: Hemoglobin 11.9 g/dL, Vitamin D 12 ng/mL, Vitamin B12 297 pg/mL, LDL cholesterol 104 mg/dL. - Urine analysis: Negative. Plan I instructed the patient to implement sinus irrigation techniques and advised OTC options for further symptom relief if needed. The patient will continue low- dose vitamin D supplementation while engaging in an active lifestyle to address underlying deficiencies. Dietary measures are to be prioritized for improving vitamin levels with fish and eggs. Monitoring of GERD plainly follows current effective management strategies while addressing chronic conditions with regular lab assessments, maintaining vigilance on anemia and leukopenia trends. Although deliberation on anxiety management was discussed, no new interventions will be pursued as per patient preference. Patient was informed and verbally consented to the use of an ambient scribe for clinic note documentation during this visit. Discussion Notes I reviewed the patient's complex needs, emphasizing low vitamin D and B12 management through supplementation and lifestyle changes. The patient actively participates in the decision to delay antibiotic treatment for acute sinusitis, considering non-pharmacological options first with support for symptom management like sinus irrigation. She will continue vitamin D supplementation while increasing outdoor activities and vitamin-rich diet improvements for B12 deficiency. Addressing sinus symptoms, she was informed about sinus rinse and the judicious use of antibiotics. The patient's concurrent considerations for anxiety concerning jury duty reflect the preference for observation without immediate pharmacotherapy. I support this decision. Recommendations were reiterated for lifestyle adjustments and using OTC options as required for mild, transient stress alleviation. Patient Instructions - Use sinus rinse twice daily. - Take 2000 IU vitamin D daily with meals. - Increase intake of fish and eggs to improve vitamin B12 levels. - See pharmacist to collect prescribed medications. - Continue managing GERD with current medications. - Engage in outdoor activities for natural sunlight exposure. - Focus on routine health checkups and follow-ups as scheduled. - Consider relaxation techniques or OTC options for stress relief if jury duty becomes overwhelming. - Seek medical care if symptoms worsen or new symptoms arise. Medications: New amoxicillin-pot clavulanate 500-125 mg 1 tab PO TID 21 tabs 0RF R09.81 - Nasal congestion cholecalciferol (vitamin D3) 50 mcg PO DAILY 90 days 90 caps 3RF E55.9 - Vitamin D deficiency, unspecified
== END 2024-09-05 18:29 | disposition home or self-care (01) ==
PROVIDERS: PCP Internal Medicine; Visit Provider Internal Medicine
DX: D64.9 Anemia, unspecified (principal); E53.8 Deficiency of other specified B group vitamins; K21.00 Gastro-esophageal reflux disease with esophagitis, without bleeding; J45.40 Moderate persistent asthma, uncomplicated; E55.9 Vitamin D deficiency, unspecified; R09.81 Nasal congestion

== ENCOUNTER → 2024-09-05 17:31 | Outpatient (BNVA) | payer OTHER, SELFPAY | PROVIDERS: PCP Internal Medicine; Visit Provider Internal Medicine | DX: R09.81 Nasal congestion (principal); D64.9 Anemia, unspecified; E53.8 Deficiency of other specified B group vitamins; K21.00 Gastro-esophageal reflux disease with esophagitis, without bleeding; J45.40 Moderate persistent asthma, uncomplicated; E55.9 Vitamin D deficiency, unspecified | CPT/HCPCS: 99212 ==

== ENCOUNTER 2024-11-04 07:13 | Outpatient (AMB) | payer OTHER, SELFPAY ==
[2024-11-04 08:17] VITALS: BP 110/70; PULSE 66; RESP 16; TEMP 36.9; O2SAT 95; BMI 21.5
--- NOTE | 2024-11-04 08:17 | MHC.PC.OV ---
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 Name: Pt declined Allergies No Known Allergies Allergy (Verified 11/04/24 08:57) Medication List - Last Reconciled 11/04/24 by JEAN-PAUL York cholecalciferol (vitamin D3) 50 mcg PO DAILY 90 days [collagen gummy PO] hydrocortisone 2.5% 1 appl topical TID prednisone 10 mg PO DIRECTED vitamin B complex 1 cap PO DAILY Tobacco use date assessed: 11/04/24 Dental Screening Dental Screen Date: 11/04/24 Did you have a dental visit in the last 12 months?: No Did you have a dental problem in the last 6 months where you did not have access to dental care?: No Was dental information given to patient?: No HPI lower back pain HPI Details Patient is a 49-year-old female who is presenting with complaints of chronic low back pain onset:few days ago, usually it is on and off. Now it is continuous Duration: continuous Aggravation: reports that when she touches it, it is very sensitive to the touch Alleviation:nothing makes it feel better and it is the same during the day and nighttime Severity: 3 Characteristics: burning sensation across the whole back PFSH Medical History Lumbar spine pain Vegetarian diet Has daytime drowsiness Change in mental status Chills Lethargy Fatigue Weight gain Cellulitis Paronychia Wrist pain, left Uterine polyp Left ovarian cyst Snoring Chronic leukopenia Chronic rhinitis Asthma Gastritis Iron deficiency anemia Vitamin B12 deficiency Bacterial vaginosis Hypovitaminosis D GERD (gastroesophageal reflux disease) Surgical History History of esophagogastroduodenoscopy (EGD) History of mandibular surgery Congenital cataract Family History Mother Diabetes Maternal Grandmother Diabetes Other Leukemia Substance abuse Social History Housing: House Alcohol intake: never Patient Tobacco Use Status: Never used Tobacco e-Cigarette/Vaping Use: Never Used Second Hand Smoke Exposure: No service: No Current occupational status: employed 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 1. Little interest or pleasure in doing things: not at all 2. Feeling down, depressed, or hopeless: not at all 3. Trouble falling or staying asleep, or sleeping too much: several days 4. Feeling tired or having little energy: nearly every day 5. Poor appetite or overeating: not at all 6. Feeling bad about yourself - or that you are a failure or have let yourself or your family down: not at all 7. Trouble concentrating on things, such as reading the newspaper or watching television: more than half the days 8. Moving or speaking so slowly that other people could have noticed. Or the opposite - being so fidgety or restless that you have been moving around a lot more than usual: not at all 9. Thoughts that you would be better off or of hurting yourself in some way: not at all Total score: 6 Depression Screening Interpretation: Positive Depression Screening Done: Yes Source: Developed by Drs. Chase Maxwell, Yakelin Nam, Pierre Pearce and colleagues, with an educational joce from [employer]. Thrive Questionnaire Date Thrive assessed: 11/04/24 I am a: Patient What is your living situation today?: I have a steady place to live Within the past 12 months, did the food you bought not last and you didn't have the money to get more?: Never true Within the past 12 months, did you worry whether your food would run out before you got money to buy more?: Never true Do you have trouble paying for medicines?: No Do you have trouble getting transportation to medical appointments?: No Do you have trouble paying your heating and electricity bill?: No Do you have trouble taking care of your child, family member or friend?: No Do you have trouble with day-to-day activities such as bathing, preparing meals, shopping, managing finances, etc.?: No Are you currently unemployed and looking for a job?: No Are you interested in more education?: Yes Please select the resources that you would like help with: None Currently or been in a relationship where the following occur: No concerns reported THRIVE Score: 0 AUDIT C Alcohol Use Questionnaire (AUDIT-C) 1. How often do you have a drink containing alcohol?: Never Total Score: 0 Score Reviewed/Action Taken: No CLARIBEL-7 AMB Questionnaire CLARIBEL-7 Date CLARIBEL - 7 assessed: 11/04/24 Feeling nervous, anxious, or on edge: 0 = Not at all Not being able to stop or control worryin = Not at all Worrying too much about different things: 0 = Not at all Trouble relaxin = Not at all Being so restless that it is hard to sit still: 0 = Not at all Becoming easily annoyed or irritable: 0 = Not at all Feeling afraid as if something awful might happen: 0 = Not at all Total CLARIBEL-7 score (0-4 normal; 5-9 mild; 10-14 moderate; 15-21 severe): 0 Source: Developed by Drs. Chase Maxwell, Yakelin Nam, Pierre Pearce and colleagues, with an educational joce from [employer]. Review of Systems Const Reports no additional complaints and Denies weakness Eyes Reports as per HPI ENT Reports no additional complaints Card Denies chest pain, Denies leg edema and Denies lightheadedness Resp Denies cough, Denies hemoptysis and Denies wheezing GI Denies abdominal pain, Denies melena, Denies constipation, Denies diarrhea and Denies vomiting Denies urinary frequency, Denies dysuria and Denies urinary urgency Musc Reports back pain (chronic back pain but now she has a burning sensation), Denies arthralgias, Denies joint swelling, Denies muscle weakness, Denies numbness, Denies radiating pain into limb and Denies tingling Skin/Breast Reports erythema (redness to lower back) and Reports skin swelling (lower back) Neuro Reports burning sensations (lower back), Denies numbness, Denies tingling and Denies weakness Kvng/Lymph Denies easy bleeding and Denies easy bruising Aller/Immun Denies wheezing Physical exam (Primary Care) Vital Signs: Last Vital Signs Temp 98.5 F 11/04/24 08:17 Pulse 66 11/04/24 08:17 Resp 16 11/04/24 08:17 BP 110/70 11/04/24 08:17 Pulse Ox 95 11/04/24 08:17 Oxygen Delivery Method Room Air 11/04/24 08:17 BMI result Body Mass Index 21.5 Tobacco/Smoking Status: Tobacco use Status Tobacco use date assessed 11/04/24 11/04/24 08:31 Patient Tobacco Use Status Never used Tobacco 11/04/24 08:31 e-Cigarette/Vaping Use Never Used 11/04/24 08:31 PHQ-9: PHQ-9 Score PHQ-9: Total score 6 11/04/24 08:31 Depression Screening Interpretation: Positive Thrive Assessment: Date of Thrive Assessment Date Thrive assessed 11/04/24 11/04/24 08:31 Currently or been in a relationship where the following occur: No concerns reported Const General: healthy appearing, no acute distress, alert and awake Nutritional Appearance: well nourished Orientation/consciousness: oriented to person, oriented to place and oriented to time HENMT Ears: external ears normal General nose exam: Normal external nose present Eyes Conjunctivae: conjunctivae normal Sclerae: sclerae normal Neck Neck: Yes no lymphadenopathy and Yes no JVD Thyroid: Thyroid normal Carotids: no bruits Resp Effort & Inspection: normal respiratory effort and not tachypneic Auscultation: no crackles, no rales, no rhonchi and no wheezes Cardio Rate: regular rate Rhythm: regular rhythm Heart sounds: no murmurs and normal S1 and S2 GI Palpation (GI): Soft to palpation, nontender, no hepatomegaly and no splenomegaly Auscultation: normal bowel sounds General: Yes no CVA tenderness Back/Spine/Pelvis Back: no CVA tenderness Thoracic/Lumbar Spine: lumbar spinal tenderness and No straight leg raise positive Back/spine/pelvis image:  1. a rectangle appearing redness across the back Skin General skin exam: dry skin and erythema (across lower back) Neuro General: oriented to person, oriented to place and oriented to time Gait exam (Neuro): Normal gait present Extrem Right lower extremity: full ROM; no edema Left lower extremity: full ROM; no edema Psych Mental Status: mental status grossly normal Speech and movement: Normal speech and movement present Affect: Anxious affect present Attitude: cooperative Thought process: Normal thought process present Coding Level of Care Code Est Pt Level 3 (13738) Diagnoses Acute bilateral low back pain without sciatica M54.50 Back pain laterality: bilateral Chronicity: acute Sciatica presence: without sciatica Time Spent (min) 28 Assessment & Plan Assessment & Plan (1) Low back pain: Code(s): M54.50 - Low back pain, unspecified Category: Medical Qualifiers: Back pain laterality: bilateral Chronicity: acute Sciatica presence: without sciatica Qualified Code(s): M54.50 - Low back pain, unspecified Plan: Chronic lower back pain that used to be on and off. Has been continues for few days. Reports burning sensation. A rectangular appearing redness and edema to lower back noted. Patient reports that she was using a cooling blanket to her back. Appears to be contact dermatitis. Hydrocortisone 2.5% ointment ordered and prednisone tapered ordered. The patient requesting blood work due to her suspicion that something more serious is going on. CBC, CMP and inflammatory markers were ordered. Patient to contact office if symptoms are not resolving. Orders: Orders CRP High Sensitivity Today L25.9 - Unspecified contact dermatitis, unspecified cause, M54.50 - Low back pain, unspecified Complete Blood Count Auto Diff Today L25.9 - Unspecified contact dermatitis, unspecified cause, M54.50 - Low back pain, unspecified Erythrocyte Sedimentation Rate Today L25.9 - Unspecified contact dermatitis, unspecified cause, M54.50 - Low back pain, unspecified Comprehensive Met. Panel Today L25.9 - Unspecified contact dermatitis, unspecified cause, M54.50 - Low back pain, unspecified Medications: New hydrocortisone 2.5% 1 appl topical TID 454 grams 1RF prednisone see taper instructions take 4 tabs x 2 days, the 3 tabs x 2 days, then 2 tab x 2 days, then 1 tab x 2 days = 20 tabs for 8 eight days. 10 mg PO DIRECTED 20 tabs 0RF
== END 2024-11-04 08:59 | disposition home or self-care (01) ==
LOC: HO.HMCH 07:14
PROVIDERS: PCP Internal Medicine
DX: M54.50 Low back pain, unspecified (principal)

== ENCOUNTER 2024-11-04 07:13 | Outpatient (REF) | payer OTHER, SELFPAY ==
[2024-11-04 09:23] LABS: MANUAL DIFF FLAG NO
[2024-11-04 10:00] LABS: Basophils Percent Auto 1.5 % (0-2); Eosinophils Absolute Auto 0.1 X10*3/uL (0.0-0.4); Eosinophils Percent Auto 2.2 % (0-4); Hemoglobin 13.7 g/dl (12.0-16.0); Lymphocytes Percent Auto 35.7 % (20-40); Mean Corpuscular HGB Conc 33.4 g/dl (31.0-35.0); Mean Corpuscular Volume 92.8 fL (80.0-98.0); Mean Platelet Volume 10.7 fL (9.4-12.3); Monocytes Absolute Auto 0.3 X10*3/uL (0.1-1.2); Monocytes Percent Auto 11.4 % (2-11); Neutrophils Absolute Auto 1.3 x10*3/uL (2.0-8.3); Neutrophils Percent Auto 49.2 % (45-73); Platelet Count 273 X10*3/uL (160-400); Red Blood Count 4.42 X10*6/uL (4.20-5.50); Red Cell Distribution Width 13.4 % (11.0-16.0); White Blood Count 2.7 X10*3/uL (4.8-10.8)
[2024-11-04 10:30] LABS: Alanine Aminotransferase 16 U/L (0-31); Albumin Level 4.4 g/dL (3.5-5.0); Alkaline Phosphatase 57 U/L (39-117); Anion Gap 9 (12-20); Aspartate Amino Transferase 25 U/L (5-31); Bilirubin Total 0.4 mg/dL (0.0-1.0); Blood Urea Nitrogen 7 mg/dL (9-16); Calcium 9.2 mg/dL (8.4-10.2); Carbon Dioxide 29 mmol/L (22-29); Chloride 102 mmol/L (96-108); Estimated Glomerular Filt Rate > 60; Glucose Random 97 mg/dL (60-115); Sodium 136 mmol/L (135-145); Total Protein 7.9 g/dL (6.5-8.0)
[2024-11-04 10:39] LABS: Erythrocyte Sedimentation Rate 14 MM/HR (0-20)
[2024-11-08 03:39] LABS: CRP High Sensitivity 0.2 mg/L
== END 2024-11-04 07:14 | disposition home or self-care (01) ==
LOC: HO.LAB 07:13
PROVIDERS: PCP Internal Medicine
DX: M54.50 Low back pain, unspecified (principal); L25.9 Unspecified contact dermatitis, unspecified cause
CPT/HCPCS: 36415; 80053; 85025; 85652; 86141; 99212